=== PATIENT | female | born 1995 | race Caucasian/White ===

== ENCOUNTER 2023-07-26 23:41 | Emergency (ER) | payer OTHER ==
--- NOTE | 2023-07-26 23:44 | EDPHYS ---
Physician Documentation [facility] Name: Margaux Clifford Age: 27 yrs Sex: Female : 1995 Arrival Date: 07/26/2023 Time: 23:41 Bed Waiting Private MD: ED Physician Refugio Wang HPI: 07/26 23:45 This 27 yrs old Female presents to ER via Unassigned with complaints of Exposure. kb 23:45 Patient is a 27-year-old female who presents for bacterial meningitis exposure. Request kb prophylactic antibiotics.. Historical: - Allergies: 23:48 No Known Allergies; cm10 - Home Meds: 23:48 None [Active]; cm10 - PMHx: 23:48 None; cm10 - Immunization history:: Adult Immunizations up to date. - Social history:: Smoking status: Patient denies any tobacco usage or history of. ROS: 23:45 Constitutional: Negative for fever, chills, and weight loss, kb 23:45 All other systems are negative, Exam: 23:45 Constitutional: This is a well developed, well nourished patient who is awake, alert, kb and in no acute distress. Head/Face: Normocephalic, atraumatic. ENT: Moist Mucous membranes Respiratory: Respirations even and unlabored. No increased work of breathing. Talking in full sentences Skin: Warm, dry with normal turgor. Normal color. MS/ Extremity: Pulses equal, no cyanosis. Neurovascular intact. Full, normal range of motion. Neuro: Awake and alert, GCS 15, oriented to person, place, time, and situation. Moves all extremities. Normal gait. Vital Signs: 23:47 BP 133 / 89; Pulse 87; Resp 18; Temp 98.9; Pulse Ox 99% on R/A; cm10 MDM: 23:43 Patient medically screened. kb 23:46 Data reviewed: vital signs, nurses notes. Counseling: I had a detailed discussion with kb the patient and/or guardian regarding the historical points, exam findings, and any diagnostic results supporting the discharge/admit diagnosis, the need for outpatient follow up, a family practitioner, to return to the emergency department if symptoms worsen or persist or if there are any questions or concerns that arise at home. Administered Medications: 23:47 Drug: Ciprofloxacin PO 1 grams PO once Route: PO; cm10 23:50 Follow up: Response: No adverse reaction cm10 Disposition: 07/27 03:14 Co-signature as Attending Physician, Refugio Wang MD I agree with the assessment sp4 and plan of care. I reviewed the patient's care provided by Advanced Practice Provider \T\ agree w/ the diagnosis \T\ care plan. I personally saw the pt \T\ performed a substantive portion of the visit, incldng all aspects of the (History/Exam/Medical Decision Making). Disposition Summary: 07/26/23 23:44 Discharge Ordered Notes: Location: Home kb Condition: Stable kb Diagnosis - Bacterial meningitis exposure kb Followup: kb - With: Emergency Department - When: As needed - Reason: Worsening of condition Followup: kb - With: Private Physician - When: 2 - 3 days - Reason: Recheck today's complaints, Continuance of care, Re-evaluation by your physician Forms: - Medication Reconciliation Form kb - Thank You Letter kb - Antibiotic Education kb - Prescription Opioid Use kb - Patient Portal Instructions kb - Leadership Thank You Letter kb Signatures: Gabbie Joseph, TORCH BRAZER-C TORCH BRAZER-Refugio Benítez MD MD sp4 Laine Fabian RN RN cm10
--- OUTSIDE RECORDS SUMMARY | 2023-07-26 23:45 | XMS REPORT | Continuity of Care Document ---
:1995 Author Organization [facility] t Address [address] [place] [address] Care Team Providers Name Role Phone Ambreen Newton MD Primary Care Physician [phone] Lilo Isabel Attending Clinician Unavailable AMBREEN NEWTON Attending Clinician Unavailable [email or web address] Attending Clinician Unavailable Ambreen Newton MD Attending Clinician [phone] RONALD BRITO Attending Clinician Unavailable Ronald Brito PA-C Attending Clinician Unknown, Attending Attending Clinician Unavailable Doctor Unassigned, [employer] Attending Clinician Unavailable Elsa Disla MD Attending Clinician ELSA DISLA Attending Clinician Unavailable LION RODRIGUEZ Attending Clinician Unavailable MAYA CERDA Attending Clinician Unavailable MAYA CERDA Attending Clinician Unavailable Lab, Ang - Db Attending Clinician Unavailable Mukesh Houser Attending Clinician MUKESH BLACKWOOD Attending Clinician Unavailable ALEX FRENCH Attending Clinician Unavailable TESTING, LJ LAKESHA ABAD Attending Clinician Unavailable [id number] Attending Clinician Unavailable Alex French DO Attending Clinician LAB90 Attending Clinician Unavailable SHARDA ZAMBRANO Attending Clinician Unavailable Lilo Isabel Admitting Clinician Unavailable [email or web address] Admitting Clinician Unavailable Payers Payer Name Policy Type Policy Number Effective Date Expiration Date Jovi hansen BLUE [employer]ENTIALS HMO [id number] 2022 00:00:00 TRS BLUE ESSENTIALS 9 [id number] 2022 CAPITATED PRIMARY 00:00:00 AETNA 2 [id number] 2022 00:00:00 Problems Condition Condition Condition Status Onset Resolution Last Treating Co mments Source Name Details Category Date Date Treatment Clinician Date Abnormal Abnormal Disease Active Unive rs uterine uterine 2-19 ity of bleeding bleeding 00:00: [place] [facility] Pain Pain Disease Active Univers pelvic pelvic 2-19 ity of 00:00: [place] [facility] Presence Presence Disease Active Unive rs of of 2-19 ity of intrauteri intrauteri [place] 00 Medical contracept contracept Br anch anne device anne device BMI BMI Disease Active Univers 25.0-25.9, 25.0-25.9, 2-19 it y of adult adult 00:00: [place] [facility] Encounter Encounter Disease Active Uni vers for for 2-10 ity of contracept contracept [place] anne anne 00 Medical management management Br anch , , unspecifie unspecifie d type d type Hx of iron Hx of iron Disease Active U nivers deficiency deficiency 2-10 it y of anemia anemia 00:00: [place] [facility] Migraine Migraine Disease Active Unive rs with with 2-10 ity of status status 00:00: [place] migrainosu migrainosu 00 Me dical s, not s, not Branch intractabl intractabl e, e, unspecifie unspecifie d migraine d migraine type type Allergies, Adverse Reactions, Alerts Allergy Allergy Status Severity Reaction(s) Onset Inactive Treating Comm ents Source Name Type Date Date Clinician No Known DA Active U 2019-09 [facility] [place] No Known DA Active U 2019-09 [facility]01 [facility] NO KNOWN Drug Active Univers ALLERGIE Class ity of S [facility] Social History Social Habit Start Date Stop Date Quantity Comments Source Gender identity Universit y [facility] Sexual orientation Univer [facility] Alcohol intake 2023-05-04 2023-05-04 Ex-drinker [facility] 00:00:00 00:00:00 (finding) [facility] Exposure to 2022-12-06 2022-12-16 Not sure [facility] SARS-CoV-2 (event) 00:00:00 10:40:00 [facility] Tobacco use and 2022-10-20 2022-10-20 Smokeless tobacco Un iversity of exposure 00:00:00 00:00:00 non-user [facility] Alcohol Comment 2022-10-20 2022-10-20 occasionally Univers ity of 00:00:00 00:00:00 [facility] History of Social 2022-10-14 2022-10-14 Univers ity of function 00:00:00 00:00:00 [facility] Sex [birth year] Universit y of 00:00:00 00:00:00 [facility] Smoking Status Start Date Stop Date Source Tobacco smoking consumption [facility] Never smoked tobacco [facility] Medications Ordered Filled Start Stop Current Ordering Indication Dosage Frequency Signature Comments Components Source Medication Medication Date Date Medication? Clinician (SIG) Name Name amphetamine 2022-09 Yes [id number] 15mg Take 1 Univers -dextroamph 1-01 capsule by it y of etamine 00:00: mouth [place] (ADDERALL 00 every Medical XR) 15 mg morning. Branch 24 hr capsule amphetamine 2022-09 Yes [id number] 15mg Take 1 Univers -dextroamph 0-04 capsule by it y of etamine 00:00: mouth [place] (ADDERALL 00 every Medical XR) 15 mg morning. Branch 24 hr capsule amphetamine 2022-09 Yes [id number] 15mg Take 1 Univers -dextroamph 0-04 capsule by it y of etamine 00:00: mouth [place] (ADDERALL 00 every Medical XR) 15 mg morning. Branch 24 hr capsule amphetamine 2022-09- No [id number] 15mg Take 1 Univers -dextroamph 0-04 11-01 capsule by i ty of etamine 00:00: 00:00 mouth [place] (ADDERALL 00 :00 every Medical XR) 15 mg morning. Branch 24 hr capsule amphetamine 2022-1 Yes [id number] 10mg Take 1 Univers -dextroamph 0-03 capsule by it y of etamine 00:00: mouth [place] (ADDERALL 00 every Medical XR) 10 mg morning. Branch 24 hr capsule amphetamine 2022-1 2023- No [id number] 10mg Take 1 Univers -dextroamph 0-03 10-04 capsule by i ty of etamine 00:00: 00:00 mouth [place] (ADDERALL 00 :00 every Medical XR) 10 mg morning. Branch 24 hr capsule amphetamine 2022-0 Yes [id number] 10mg Take 1 Univers -dextroamph 8-31 capsule by it y of etamine 00:00: mouth [place] (ADDERALL 00 every Medical XR) 10 mg morning. Branch 24 hr capsule amphetamine 2022-0 Yes [id number] 10mg Take 1 Univers -dextroamph 8-31 capsule by it y of etamine 00:00: mouth [place] (ADDERALL 00 every Medical XR) 10 mg morning. Branch 24 hr capsule amphetamine 3-0 Yes [id number] 10mg Take 1 Univers -dextroamph 8-31 capsule by it y of etamine 00:00: mouth [place] (ADDERALL 00 every Medical XR) 10 mg morning. Branch 24 hr capsule amphetamine 2022-0 3- No [id number] 10mg Take 1 Univers -dextroamph 8-31 09-29 capsule by i ty of etamine 00:00: 00:00 mouth [place] (ADDERALL 00 :00 every Medical XR) 10 mg morning. Branch 24 hr capsule nirmatrelvi 3-0 Yes [id number] 3{tbl} Take 3 Univers r-ritonavir 8-24 tablets by it y of (PAXLOVID) 00:00: mouth in [facility] [place] as 300 mg (150 00 the Medical mg x 2)-100 morning Branc h mg tablet and 3 tablets in the evening. cetirizine 3-0 Yes [id number] 10mg Take 1 Univers 10 mg 8-24 tablet by ity of tablet 00:00: mouth in [place] 00 the Medical morning. Branch bromphenira 2023-0 Yes [id number] 5mL Take 5 mL Univers mine-pseudo 8-24 by mouth 3 it y of ephedrine-D 00:00: (three) [place] M (BROMFED 00 times Medical DM) 2-30-10 daily as Bran ch mg/5 mL needed for syrup Cold symptoms. nirmatrelvi 2022-0 Yes [id number] 3{tbl} Take 3 Univers r-ritonavir 8-24 tablets by it y of (PAXLOVID) 00:00: mouth in [place] 300 mg (150 00 the Medical mg x 2)-100 morning Branc h mg tablet and 3 tablets in the evening. cetirizine 2022-0 Yes [id number] 10mg Take 1 Univers 10 mg 8-24 tablet by ity of tablet 00:00: mouth in [place] 00 the Medical morning. Branch bromphenira 2022-0 Yes [id number] 5mL Take 5 mL Univers mine-pseudo 8-24 by mouth 3 it y of ephedrine-D 00:00: (three) [place] (BROMFED 00 times Medical DM) 2-30-10 daily as Bran ch mg/5 mL needed for syrup Cold symptoms. nirmatrelvi 2022-0 Yes [id number] 3{tbl} Take 3 Univers r-ritonavir 8-24 tablets by it y of (PAXLOVID) 00:00: mouth in [place] 300 mg (150 00 the Medical mg x 2)-100 morning Branc h mg tablet and 3 tablets in the evening. cetirizine 2022-0 Yes [id number] 10mg Take 1 Univers 10 mg 8-24 tablet by ity of tablet 00:00: mouth in [place] 00 the Medical morning. Branch bromphenira 2022-0 Yes [id number] 5mL Take 5 mL Univers mine-pseudo 8-24 by mouth 3 it y of ephedrine-D 00:00: (three) [place] (BROMFED 00 times Medical DM) 2-30-10 daily as Bran ch mg/5 mL needed for syrup Cold symptoms. nirmatrelvi 2022-0 2023- No [id number] 3{tbl} Take 3 Univers r-ritonavir 8-24 08-31 tablets by i ty of (PAXLOVID) 00:00: 00:00 mouth in [place] 300 mg (150 00 :00 the Medical mg x 2)-100 morning Branc h mg tablet and 3 tablets in the evening. cetirizine 3-0 2022- No [id number] 10mg Take 1 Univers 10 mg 8-27 04-31 tablet by ity of tablet 00:00: 00:00 mouth in [place] 00 :00 the Medical morning. Branch bromphenira 2022-0 2022- No [id number] 5mL Take 5 mL Univers mine-pseudo 04-27 by mouth 3 i ty of ephedrine-D 00:00: 00:00 (three) [place] M (BROMFED 00 :00 times Medical DM) 2-30-10 daily as Bran ch mg/5 mL needed for syrup Cold symptoms. nirmatrelvi 0 2022- No [id number] 3{tbl} Take 3 Univers r-ritonavir 04-27 tablets by i ty of (PAXLOVID) 00:00: 00:00 mouth in [place] 300 mg (150 00 :00 the Medical mg x 2)-100 morning Branc h mg tablet and 3 tablets in the evening. cetirizine 2022-0 2022- No [id number] 10mg Take 1 Univers 10 mg 04-27- tablet by ity of tablet 00:00: 00:00 mouth in [place] 00 :00 the Medical morning. Branch bromphenira 2022-0 2022- No [id number] 5mL Take 5 mL Univers mine-pseudo 04-27 by mouth 3 i ty of ephedrine-D 00:00: 00:00 (three) [place] M (BROMFED 00 :00 times Medical DM) 2-30-10 daily as Bran ch mg/5 mL needed for syrup Cold symptoms. dextroamphe 2023-0 Yes [id number] 10mg Take 1 Univers tamine-amph 7-19 tablet by ity of etamine 00:00: mouth [place] (ADDERALL) 00 every Medical 10 mg morning. Branch tablet dextroamphe 2023-0 Yes [id number] 10mg Take 1 Univers tamine-amph 7-19 tablet by ity of etamine 00:00: mouth [place] (ADDERALL) 00 every Medical 10 mg morning. Branch tablet dextroamphe 2023-0 Yes [id number] 10mg Take 1 Univers tamine-amph 7-19 tablet by ity of etamine 00:00: mouth [place] (ADDERALL) 00 every Medical 10 mg morning. Branch tablet dextroamphe 2023-0 Yes [id number] 10mg Take 1 Univers tamine-amph 7-19 tablet by ity of etamine 00:00: mouth [place] (ADDERALL) 00 every Medical 10 mg morning. Branch tablet dextroamphe 2023-0 2023- No [id number] 10mg Take 1 Univers tamine-amph 7-19 08-31 tablet by it y of etamine 00:00: 00:00 mouth [place] (ADDERALL) 00 :00 every Medical 10 mg morning. Branch tablet dextroamphe 2023-0 2023- No [id number] 10mg Take 1 Univers tamine-amph 7-19 08-31 tablet by it y of etamine 00:00: 00:00 mouth [place] (ADDERALL) 00 :00 every Medical 10 mg morning. Branch tablet dextroamphe 2023-0 Yes [id number] 10mg Take 1 Univers tamine-amph 6-16 tablet by ity of etamine 00:00: mouth [place] (ADDERALL) 00 every Medical 10 mg morning. Branch tablet dextroamphe 2023-0 2023- No [id number] 10mg Take 1 Univers tamine-amph 6-16 07-19 tablet by it y of etamine 00:00: 00:00 mouth [place] (ADDERALL) 00 :00 every Medical 10 mg morning. Branch tablet dextroamphe 2023-0 Yes [id number] 10mg Take 1 Univers tamine-amph 5-10 tablet by ity of etamine 00:00: mouth [place] (ADDERALL) 00 every Medical 10 mg morning. Branch tablet dextroamphe 2023-0 2023- No [id number] 10mg Take 1 Univers tamine-amph 5-10 06-16 tablet by it y of etamine 00:00: 00:00 mouth [place] (ADDERALL) 00 :00 every Medical 10 mg morning. Branch tablet levonorgest 3-0 Yes by Univer s rel (MIRENA 4-14 Intrauteri it y of INTRAUTERIN 10:56: ne route. [place] E) 36 Medical Branch levonorgest 2023-0 Yes by [facility] s rel (MIRENA 4-14 Intrauteri it y of INTRAUTERIN 10:56: ne route. [place] E) 36 Medical Branch levonorgest Yes by Univ s rel (MIRENA 4-14 Intrauteri it y of INTRAUTERIN 10:56: ne route. [place] E) 36 Medical Branch levonorgest Yes by Univ s rel (MIRENA 4-14 Intrauteri it y of INTRAUTERIN 10:56: ne route. [place] E) 36 Medical Branch levonorgest Yes by [facility] s rel (MIRENA 4-14 Intrauteri it y of INTRAUTERIN 10:56: ne route. [place] E) 36 Medical Branch levonorgest Yes by [facility] s rel (MIRENA 4-14 Intrauteri it y of INTRAUTERIN 10:56: ne route. [place] E) 36 Medical Branch levonorgest Yes by [facility] s rel (MIRENA 4-14 Intrauteri it y of INTRAUTERIN 10:56: ne route. [place] E) 36 Medical Branch levonorgest Yes by [facility] s rel (MIRENA 4-14 Intrauteri it y of INTRAUTERIN 10:56: ne route. [place] E) 36 Medical Branch levonorgest Yes by [facility] s rel (MIRENA 4-14 Intrauteri it y of INTRAUTERIN 10:56: ne route. [place] E) 36 Medical Branch levonorgest Yes by [facility] s rel (MIRENA 4-14 Intrauteri it y of INTRAUTERIN 10:56: ne route. [place] E) 36 Medical Branch levonorgest Yes by Univ s rel (MIRENA 4-14 Intrauteri it y of INTRAUTERIN 10:56: ne route. [place] E) 36 Medical Branch levonorgest Yes by Univ s rel (MIRENA 4-14 Intrauteri it y of INTRAUTERIN 10:56: ne route. [place] E) 36 Medical Branch levonorgest Yes by Univ s rel (MIRENA 4-14 Intrauteri it y of INTRAUTERIN 10:56: ne route. [place] E) 36 Medical Branch levonorgest 2022-0 Yes by Univer s rel (MIRENA 4-14 Intrauteri it y of INTRAUTERIN 10:56: ne route. [place] E) 36 Medical Branch levonorgest 2022-0 Yes by Univer s rel (MIRENA 4-14 Intrauteri it y of INTRAUTERIN 10:56: ne route. [place] E) 36 Medical Branch levonorgest 2022-0 Yes by Univer s rel (MIRENA 4-14 Intrauteri it y of INTRAUTERIN 10:56: ne route. [place] E) 36 Medical Branch levonorgest 2022-0 Yes by Univer s rel (MIRENA 4-14 Intrauteri it y of INTRAUTERIN 10:56: ne route. [place] E) 36 Medical Branch cetirizine 2022-0 Yes Take by Univ ers HCl (ZYRTEC 4-14 mouth once it y of ORAL) 10:56: daily as [place] 07 needed for Medical Other Branch (allergies ). cetirizine 2022-0 Yes Take by Univ ers HCl (ZYRTEC 4-14 mouth once it y of ORAL) 10:56: daily as [place] 07 needed for Medical Other Branch (allergies ). cetirizine 2022-0 Yes Take by Univ ers HCl (ZYRTEC 4-14 mouth once it y of ORAL) 10:56: daily as [place] 07 needed for Medical Other Branch (allergies ). cetirizine 2022-0 Yes Take by Univ ers HCl (ZYRTEC 4-14 mouth once it y of ORAL) 10:56: daily as [place] 07 needed for Medical Other Branch (allergies ). cetirizine 2022-0 Yes Take by Univ ers HCl (ZYRTEC 4-14 mouth once it y of ORAL) 10:56: daily as [place] 07 needed for Medical Other Branch (allergies ). cetirizine 2022-0 Yes Take by Univ ers HCl (ZYRTEC 4-14 mouth once it y of ORAL) 10:56: daily as [place] 07 needed for Medical Other Branch (allergies ). cetirizine 2022-0 Yes Take by Univ ers HCl (ZYRTEC 4-14 mouth once it y of ORAL) 10:56: daily as [place] 07 needed for Medical Other Branch (allergies ). cetirizine 2023-0 Yes Take by Univ ers HCl (ZYRTEC 4-14 mouth once it y of ORAL) 10:56: daily as [place] 07 needed for Medical Other Branch (allergies ). cetirizine 2023-0 Yes Take by Univ ers HCl (ZYRTEC 4-14 mouth once it y of ORAL) 10:56: daily as [place] 07 needed for Medical Other Branch (allergies ). cetirizine 2023-0 Yes Take by Univ ers HCl (ZYRTEC 4-14 mouth once it y of ORAL) 10:56: daily as [place] 07 needed for Medical Other Branch (allergies ). cetirizine 2023-0 Yes Take by Univ ers HCl (ZYRTEC 4-14 mouth once it y of ORAL) 10:56: daily as [place] 07 needed for Medical Other Branch (allergies ). cetirizine 2023-0 Yes Take by Univ ers HCl (ZYRTEC 4-14 mouth once it y of ORAL) 10:56: daily as [place] 07 needed for Medical Other Branch (allergies ). cetirizine 2023-0 Yes Take by Univ ers HCl (ZYRTEC 4-14 mouth once it y of ORAL) 10:56: daily as [place] 07 needed for Medical Other Branch (allergies ). cetirizine 2023-0 Yes Take by Univ ers HCl (ZYRTEC 4-14 mouth once it y of ORAL) 10:56: daily as [place] 07 needed for Medical Other Branch (allergies ). cetirizine 2023-0 Yes Take by Univ ers HCl (ZYRTEC 4-14 mouth once it y of ORAL) 10:56: daily as [place] 07 needed for Medical Other Branch (allergies ). cetirizine 2023-0 Yes Take by Univ ers HCl (ZYRTEC 4-14 mouth once it y of ORAL) 10:56: daily as [place] 07 needed for Medical Other Branch (allergies ). cetirizine 2023-0 Yes Take by Univ ers HCl (ZYRTEC 4-14 mouth once it y of ORAL) 10:56: daily as [place] 07 needed for Medical Other Branch (allergies ). cetirizine 2023-0 Yes Take by Univ ers HCl (ZYRTEC 4-14 mouth once it y of ORAL) 10:56: daily as [place] 07 needed for Medical Other Branch (allergies ). cetirizine 2022-0 Yes Take by Univ ers HCl (ZYRTEC 4-14 mouth once it y of ORAL) 10:56: daily as [place] 07 needed for Medical Other Branch (allergies ). dextroamphe 2022-0 Yes [id number] 10mg Take 1 Univers tamine-amph 4-14 tablet by ity of etamine 00:00: mouth [place] (ADDERALL) 00 every Medical 10 mg morning. Branch tablet dextroamphe 2022-0 Yes [id number] 10mg Take 1 Univers tamine-amph 4-14 tablet by ity of etamine 00:00: mouth [place] (ADDERALL) 00 every Medical 10 mg morning. Branch tablet dextroamphe 2022-0 Yes [id number] 10mg Take 1 Univers tamine-amph 4-14 tablet by ity of etamine 00:00: mouth [place] (ADDERALL) 00 every Medical 10 mg morning. Branch tablet dextroamphe 2022-0 3- No [id number] 10mg Take 1 Univers tamine-amph 4-14 05-10 tablet by it y of etamine 00:00: 00:00 mouth [place] (ADDERALL) 00 :00 every Medical 10 mg morning. Branch tablet amphetamine 2022-0 Yes [id number] TAKE ONE Univers -dextroamph 3-17 (1) ity of etamine 10 00:00: CAPSULE(S) [place] mg 24 hr 00 BY MOUTH Medical capsule EVERY Branch MORNING. amphetamine 2022-0 Yes [id number] TAKE ONE Univers -dextroamph 3-17 (1) ity of etamine 10 00:00: CAPSULE(S) [place] mg 24 hr 00 BY MOUTH Medical capsule EVERY Branch MORNING. amphetamine 2022-0 2023- No [id number] TAKE ONE Univers -dextroamph 3-17 04-14 (1) ity of etamine 10 00:00: 00:00 CAPSULE(S) [place] mg 24 hr 00 :00 BY MOUTH Medical capsule EVERY Branch MORNING. amphetamine 2022-0 2023- No [id number] TAKE ONE Univers -dextroamph 3-17 04-14 (1) ity of etamine 10 00:00: 00:00 CAPSULE(S) [place] mg 24 hr 00 :00 BY MOUTH Medical capsule EVERY Branch MORNING. dextroamphe 2023-0 Yes [id number] 10mg Take 1 Univers tamine-amph 3-16 tablet by ity of etamine 00:00: mouth [place] (ADDERALL) 00 every Medical 10 mg morning. Branch tablet dextroamphe 2023-0 Yes [id number] 10mg Take 1 Univers tamine-amph 3-16 tablet by ity of etamine 00:00: mouth [place] (ADDERALL) 00 every Medical 10 mg morning. Branch tablet dextroamphe 2023-0 2023- No [id number] 10mg Take 1 Univers tamine-amph 3-16 04-14 tablet by it y of etamine 00:00: 00:00 mouth [place] (ADDERALL) 00 :00 every Medical 10 mg morning. Branch tablet dextroamphe 2023-0 2023- No [id number] 10mg Take 1 Univers tamine-amph 3-16 04-14 tablet by it y of etamine 00:00: 00:00 mouth [place] (ADDERALL) 00 :00 every Medical 10 mg morning. Branch tablet ZOLMitripta 2023-0 Yes 5mg Take 1 Univ ers n 5 mg 3-14 tablet by ity of tablet 15:59: mouth as [place] 07 needed for Medical Migraine. Branch cetirizine 3-0 Yes Take by Univ ers HCl (ZYRTEC 3-14 mouth. ity of ORAL) 15:59: [place] 07 Medical Branch ZOLMitripta 2023-0 Yes 5mg Take 1 Univ ers n 5 mg 3-14 tablet by ity of tablet 15:59: mouth as [place] 07 needed for Medical Migraine. Branch cetirizine 3-0 Yes Take by Univ ers HCl (ZYRTEC 3-14 mouth. ity of ORAL) 15:59: [place] 07 Medical Branch ZOLMitripta 2023-0 Yes 5mg Take 1 Univ ers n 5 mg 3-14 tablet by ity of tablet 15:59: mouth as [place] 07 needed for Medical Migraine. Branch cetirizine 2023-0 Yes Take by Univ ers HCl (ZYRTEC 3-14 mouth. ity of ORAL) 15:59: [place] 07 Medical Branch ZOLMitripta 2023-0 Yes 5mg Take 1 Univ ers n 5 mg 3-14 tablet by ity of tablet 15:59: mouth as [place] 07 needed for Medical Migraine. Branch cetirizine 2023-0 Yes Take by Univ ers HCl (ZYRTEC 3-14 mouth. ity of ORAL) 15:59: [place] 07 Medical Branch ZOLMitripta 2023-0 Yes 5mg Take 1 Univ ers n 5 mg 3-14 tablet by ity of tablet 15:59: mouth as [place] 07 needed for Medical Migraine. Branch ZOLMitripta 2023-0 Yes 5mg Take 1 Univ ers n 5 mg 3-14 tablet by ity of tablet 15:59: mouth as [place] 07 needed for Medical Migraine. Branch ZOLMitripta 2023-0 Yes 5mg Take 1 Univ ers n 5 mg 3-14 tablet by ity of tablet 15:59: mouth as [place] 07 needed for Medical Migraine. Branch ZOLMitripta 2023-0 Yes 5mg Take 1 Univ ers n 5 mg 3-14 tablet by ity of tablet 15:59: mouth as [place] 07 needed for Medical Migraine. Branch ZOLMitripta 2023-0 Yes 5mg Take 1 Univ ers n 5 mg 3-14 tablet by ity of tablet 15:59: mouth as [place] 07 needed for Medical Migraine. Branch ZOLMitripta 2023-0 Yes 5mg Take 1 Univ ers n 5 mg 3-14 tablet by ity of tablet 15:59: mouth as [place] 07 needed for Medical Migraine. Branch ZOLMitripta 2023-0 Yes 5mg Take 1 Univ ers n 5 mg 3-14 tablet by ity of tablet 15:59: mouth as [place] 07 needed for Medical Migraine. Branch ZOLMitripta 2023-0 Yes 5mg Take 1 Univ ers n 5 mg 3-14 tablet by ity of tablet 15:59: mouth as [place] 07 needed for Medical Migraine. Branch ZOLMitripta 2023-0 Yes 5mg Take 1 Univ ers n 5 mg 3-14 tablet by ity of tablet 15:59: mouth as [place] 07 needed for Medical Migraine. Branch ZOLMitripta 2023-0 Yes 5mg Take 1 Univ ers n 5 mg 3-14 tablet by ity of tablet 15:59: mouth as [place] 07 needed for Medical Migraine. Branch ZOLMitripta 2023-0 Yes 5mg Take 1 Univ ers n 5 mg 3-14 tablet by ity of tablet 15:59: mouth as [place] 07 needed for Medical Migraine. Branch ZOLMitripta 2023-0 Yes 5mg Take 1 Univ ers n 5 mg 3-14 tablet by ity of tablet 15:59: mouth as [place] 07 needed for Medical Migraine. Branch ZOLMitripta 2023-0 Yes 5mg Take 1 Univ ers n 5 mg 3-14 tablet by ity of tablet 15:59: mouth as [place] 07 needed for Medical Migraine. Branch ZOLMitripta 2023-0 Yes 5mg Take 1 Univ ers n 5 mg 3-14 tablet by ity of tablet 15:59: mouth as [place] 07 needed for Medical Migraine. Branch ZOLMitripta 2023-0 Yes 5mg Take 1 Univ ers n 5 mg 3-14 tablet by ity of tablet 15:59: mouth as [place] 07 needed for Medical Migraine. Branch ZOLMitripta 2023-0 Yes 5mg Take 1 Univ ers n 5 mg 3-14 tablet by ity of tablet 15:59: mouth as [place] 07 needed for Medical Migraine. Branch ZOLMitripta 2023-0 Yes 5mg Take 1 Univ ers n 5 mg 3-14 tablet by ity of tablet 15:59: mouth as [place] 07 needed for Medical Migraine. Branch ZOLMitripta 2023-0 Yes 5mg Take 1 Univ ers n 5 mg 3-14 tablet by ity of tablet 15:59: mouth as [place] 07 needed for Medical Migraine. Branch ZOLMitripta 2023-0 Yes 5mg Take 1 Univ ers n 5 mg 3-14 tablet by ity of tablet 15:59: mouth as [place] 07 needed for Medical Migraine. Branch amphetamine 3-0 Yes [id number] TAKE ONE Univers -dextroamph 3-14 (1) ity of etamine 10 00:00: CAPSULE(S) [place] mg 24 hr 00 BY MOUTH Medical capsule EVERY Branch MORNING. amphetamine 2023-0 Yes [id number] TAKE ONE Univers -dextroamph 3-14 (1) ity of etamine 10 00:00: CAPSULE(S) [place] mg 24 hr 00 BY MOUTH Medical capsule EVERY Branch MORNING. amphetamine 2023-0 2023- No [id number] TAKE ONE Univers -dextroamph 3-14 03-16 (1) ity of etamine 10 00:00: 00:00 CAPSULE(S) [place] mg 24 hr 00 :00 BY MOUTH Medical capsule EVERY Branch MORNING. ZOLMitripta 2023-0 Yes 5mg Take 5 mg U nivers n 5 mg 2-10 by mouth ity of tablet 15:09: as needed [place] [address] for Medical Migraine. Branch cetirizine 2022-0 Yes Take by Univ ers HCl (ZYRTEC 2-10 mouth. ity of ORAL) 15:09: [place] [address] Medical Branch ZOLMitripta 3-0 Yes 5mg Take 5 mg U nivers n 5 mg 2-10 by mouth ity of tablet 15:09: as needed [place] [address] for Medical Migraine. Branch cetirizine 2022-0 Yes Take by Univ ers HCl (ZYRTEC 2-10 mouth. ity of ORAL) 15:09: [place] [address] Medical Branch ZOLMitripta 2022-0 Yes 5mg Take 5 mg U nivers n 5 mg 2-10 by mouth ity of tablet 15:09: as needed [place] [address] for Medical Migraine. Branch cetirizine 2022-0 Yes Take by Univ ers HCl (ZYRTEC 2-10 mouth. ity of ORAL) 15:09: [place] [address] Medical Branch ZOLMitripta 3-0 Yes 5mg Take 5 mg U nivers n 5 mg 2-10 by mouth ity of tablet 15:09: as needed [place] [address] for Medical Migraine. Branch cetirizine 2022-0 Yes Take by Univ ers HCl (ZYRTEC 2-10 mouth. ity of ORAL) 15:09: [place] [address] Medical Branch ZOLMitripta 3-0 Yes 5mg Take 5 mg U nivers n 5 mg 2-10 by mouth ity of tablet 15:09: as needed [place] [address] for Medical Migraine. Branch cetirizine 2022-0 Yes Take by Univ ers HCl (ZYRTEC 2-10 mouth. ity of ORAL) 15:09: [place] [address] Medical Branch amphetamine 3-0 Yes TAKE ONE Un harika -dextroamph 1-30 (1) ity of etamine 10 00:00: CAPSULE(S) [place] mg 24 hr 00 BY MOUTH Medical capsule EVERY Branch MORNING. amphetamine 3-0 Yes TAKE ONE Un harika -dextroamph 1-30 (1) ity of etamine 10 00:00: CAPSULE(S) [place] mg 24 hr 00 BY MOUTH Medical capsule EVERY Branch MORNING. amphetamine 3-0 Yes TAKE ONE Un harika -dextroamph 1-30 (1) ity of etamine 10 00:00: CAPSULE(S) [place] mg 24 hr 00 BY MOUTH Medical capsule EVERY Branch MORNING. amphetamine 0 Yes TAKE ONE Un harika -dextroamph 1-30 (1) ity of etamine 10 00:00: CAPSULE(S) [place] mg 24 hr 00 BY MOUTH Medical capsule EVERY Branch MORNING. amphetamine 0 Yes TAKE ONE Un harika -dextroamph 1-30 (1) ity of etamine 10 00:00: CAPSULE(S) [place] mg 24 hr 00 BY MOUTH Medical capsule EVERY Branch MORNING. amphetamine 2022- No TAKE ONE U nivers -dextroamph 1-30 03-14 (1) ity of etamine 10 00:00: 00:00 CAPSULE(S) [place] mg 24 hr 00 :00 BY MOUTH Medical capsule EVERY Branch MORNING. amphetamine 2022- No TAKE ONE U nivers -dextroamph 1-30 03-14 (1) ity of etamine 10 00:00: 00:00 CAPSULE(S) [place] mg 24 hr 00 :00 BY MOUTH Medical capsule EVERY Branch MORNING. Vital Signs Vital Name Observation Time Observation Value Comments Source Systolic blood 2023-05-04 20:54:00 130 mm[Hg] Univer [facility] Diastolic blood 2023-05-04 20:54:00 80 mm[Hg] [facility] Heart rate 2023-05-04 20:54:00 74 /min [facility] Respiratory rate 2023-05-04 20:54:00 18 /min [facility] Body height 2023-05-04 20:54:[address] [facility] Body weight 2023-05-04 20:54:[address] [facility] BMI 2023-05-04 20:54:00 24.99 kg/m2 [facility] Oxygen saturation in 2023-05-04 20:54:00 100 /min [facility] Arterial blood by [facility] Pulse oximetry [place] Systolic blood 2023-04-27 20:38:00 128 mm[Hg] [facility] Diastolic blood 2023-04-27 20:38:00 85 mm[Hg] Unive rsity of pressure [place] [facility] Heart rate 2023-04-27 20:38:00 106 /min [facility] [place] [facility] Body temperature 2023-04-27 20:38:00 37.33 Kristina [facility] [place] [facility] Respiratory rate 2023-04-27 20:38:00 24 /min [facility] [place] [facility] Body weight 2023-04-27 20:38:00 63.957 kg [facility] [place] [facility] BMI 2023-04-27 20:38:00 24.20 kg/m2 [facility] [place] [facility] Oxygen saturation in 2023-04-27 20:38:00 99 /min University of Arterial blood by [facility] Pulse oximetry Branch Systolic blood 2022-12-16 15:50:00 125 mm[Hg] Univer sity of pressure [place] [facility] Diastolic blood 2022-12-16 15:50:00 81 mm[Hg] Unive rsity of pressure [place] [facility] Heart rate 2022-12-16 15:50:00 65 /min [facility] [place] [facility] Body temperature 2022-12-16 15:50:00 36.61 Kristina [facility] [place] [facility] Respiratory rate 2022-12-16 15:50:00 18 /min [facility] [place] [facility] Body height 2022-12-16 15:50:00 162.6 cm [facility] [place] [facility] Body weight 2022-12-16 15:50:00 66.271 kg [facility] [place] [facility] BMI 2022-12-16 15:50:00 25.08 kg/m2 [facility] [place] [facility] Oxygen saturation in 2022-12-16 15:50:00 100 /min University of Arterial blood by [facility] Pulse oximetry Branch Systolic blood 2022-11-15 20:59:00 132 mm[Hg] Univer sity of pressure [place] [facility] Diastolic blood 2022-11-15 20:59:00 83 mm[Hg] Unive rsity of pressure [place] [facility] Heart rate 2022-11-15 20:59:00 76 /min [facility] [place] [facility] Body temperature 2022-11-15 20:59:00 36.61 Kristina [facility] [place] [facility] Respiratory rate 2022-11-15 20:59:00 16 /min [facility] [place] [facility] Body height 2022-11-15 20:59:00 162.6 cm [facility] [place] [facility] Body weight 2022-11-15 20:59:00 68.947 kg [facility] [place] [facility] BMI 2022-11-15 20:59:00 26.09 kg/m2 Universi ty of [facility] Oxygen saturation in 2022-11-15 20:59:00 100 /min University of Arterial blood by [facility] Pulse oximetry Branch Systolic blood 2022-10-20 20:01:00 133 mm[Hg] Univer sity of pressure [place] [facility] Diastolic blood 2022-10-20 20:01:00 83 mm[Hg] Unive rsity of pressure [facility] Branch Heart rate 2022-10-20 20:01:00 90 /min [facility] [place] [facility] [place] Body temperature 2022-10-20 20:01:00 36.72 Kristina Univ ersity of [facility] Branch Respiratory rate 2022-10-20 20:01:00 16 /min [facility] [place] [facility] Body height 2022-10-20 20:01:00 162.6 cm [facility] [place] [facility] Body weight 2022-10-20 20:01:00 68.357 kg [facility] [place] [facility] BMI 2022-10-20 20:01:00 25.87 kg/m2 [facility] [place] [facility] Systolic blood 2022-10-14 21:09:00 129 mm[Hg] Univer sity of pressure [place] [facility] Diastolic blood 2022-10-14 21:09:00 83 mm[Hg] Unive rsity of pressure [place] [facility] Heart rate 2022-10-14 21:09:00 68 /min [facility] [place] [facility] Body temperature 2022-10-14 21:09:00 36.5 Kristina [facility] [place] [facility] Body height 2022-10-14 21:09:00 162.6 cm [facility] [place] [facility] Body weight 2022-10-14 21:09:00 68.493 kg [facility] [place] [facility] BMI 2022-10-14 21:09:00 25.92 kg/m2 [facility] [place] [facility] Oxygen saturation in 2022-10-14 21:09:00 100 /min University Arterial blood by [facility] Pulse oximetry [place] Procedures Procedure Date / Time Performed Performing Clinician Dionne ray POCT MOLECULAR STREP 2023-04-27 20:33:00 Unknown, Attending [facility] POCT SARS-COV-2 2023-04-27 20:22:00 Daryl [facility] [place] ANTIGEN (BINAX NOW) Medical Bran ch PAIN MANAGEMENT 2022-12-16 05:01:00 Doctor Unassigned, Yecenia [facility] AGREEMENT & INFORMED Name Medical [facility] nc CONSENT POCT TEST 2022-10-20 00:00:00 Maya Cerda [facility] ASSIGNMENT OF BENEFITS 2022-10-14 20:55:34 Doctor Unassigned, Yecenia [facility] [id number] 2020-08-07 00:00:00 [facility] [place] [facility] Encounters Start End Encounter Admission Attending Care Care Encounter Source Date/Time Date/Time Type Type Clinicians Facility Department ID 2020-10-14 Inpatient VENKAT Isabel [facility] LD [id number] [facility] 12:10:00 Lilo [facility] 2020-08-04 Inpatient Chalo [facility] DULCE [id number] [facility] 15:58:00 Lilo [facility] 2023-09-05 2023-09-05 Outpatient R LAMAR [facility] [id number] [facility] 16:00:00 16:00:00 AMBREEN [facility] 2023-07-05 2023-07-05 Outpatient [id number] PRIV PRIV [id number] [facility] 00:00:00 00:00:00 [id number] [id number] Medic al 2023-07-03 2023-07-03 Patient Villard [facility] 1.2.840.114 [id number] [facility] 00:00:00 00:00:00 Secure Ambreen Rivera [facility] 350.1.13.10 ity of [place] 4.2.7.2.686 Luis as AYDIN?BLEA [phone] [place] GOMEZ [address] [place] [address] MEDICAL OFFICE BUILDING 2023-06-09 2023-06-09 [facility] 1.2.840.114 10 [id number] Univers 00:00:00 00:00:00 , Ambreen HEALTH 350.1.13.10 ity of M [place] 4.2.7.2.686 Luis as AYDIN?BLEA [phone] [address] MEDICAL OFFICE BUILDING 2023-06-05 2023-06-05 Patient Villard [facility] 1.2.840.114 10 [id number] Univers 00:00:00 00:00:00 Secure Msg , Ambreen HEALTH 350.1.13.10 ity of M [place] 4.2.7.2.686 Luis as AYDIN?BLEA [phone] [address] MEDICAL OFFICE BUILDING 2023-06-02 2023-06-02 Refill [facility] 1.2.840.114 10 [id number] Univers 00:00:00 00:00:00 , Ambreen HEALTH 350.1.13.10 ity of M [place] 4.2.7.2.686 Luis as AYDIN?BLEA [id number] [address] MEDICAL OFFICE BUILDING 2023-05-24 2023-05-24 Refill [facility] 1.2.840.114 10 [id number] Univers 00:00:00 00:00:00 , Ambreen HEALTH 350.1.13.10 ity of M [place] 4.2.7.2.686 Luis as AYDIN?BLEA [id number] [address] MEDICAL OFFICE BUILDING 2023-05-04 2023-05-04 [facility] 1.2.840.114 10 [id number] Univers 16:00:00 16:20:00 Visit , Ambreen HEALTH 350.1.13.10 ity of M [place] 4.2.7.2.686 Luis as AYDIN?BLEA [id number] [address] MEDICAL OFFICE BUILDING 2023-05-04 2023-05-04 [facility] [id number] Univers 16:00:00 16:00:00 , AMBREEN it y of [facility] 2023-04-27 2023-04-27 Outpatient R DARYL [facility] [id number] Univers 15:20:00 15:47:28 RONALD ity of [facility] 2023-04-27 2023-04-27 Urgent Mary Britocy [facility] 1.2.840.11 [id number] Univers 15:20:00 15:47:28 Care Unknown, [facility] HEALTH 350.1.13.10 ity of [place] 4.2.7.2.686 Luis as AYDIN?BLEA [id number] [address] MEDICAL OFFICE [facility] 2023-04-27 2023-04-27 Letter Daryl [facility] 1.2.330.011 [id number] Univers 00:00:00 00:00:00 (Out) Ronald HEALTH 350.1.13.10 it y of [place] 4.2.7.2.686 Luis as AYDIN?BLEA [phone] [address] OFFICE [facility] 2023-04-27 2023-04-27 Letter Daryl [facility] 1.2.451.065 [id number] Univers 00:00:00 00:00:00 (Out) Ronald HEALTH 350.1.13.10 it y of [place] 4.2.7.2.686 Luis as AYDIN?BLEA [id number] [address] OFFICE [facility] 2023-04-18 2023-04-18 Outpatient R LAMAR [facility] [id number] Univers 16:00:00 16:00:00 , AMBREEN it y of [facility] 2023-03-22 2023-03-22 Refill [facility] 1.2.840.114 [id number] Univers 00:00:00 00:00:00 , Ambreen HEALTH 350.1.13.10 ity of M [place] 4.2.7.2.686 Luis as AYDIN?BLEA [phone] [facility] [address] [place] MEDICAL OFFICE [facility] 2023-02-17 2023-02-17 [facility] 1.2.840.114 10 [id number] Univers 00:00:00 00:00:00 , Ambreen HEALTH 350.1.13.10 ity of M [place] 4.2.7.2.686 Luis as AYDIN?BLEA [id number] [address] MEDICAL OFFICE [facility] 2023-02-11 2023-02-11 Patient [facility] 1.2.840.114 [id number] Univers 00:00:00 00:00:00 Secure Msg , Ambreen HEALTH 350.1.13.10 ity of M [place] 4.2.7.2.686 Luis as AYDIN?BLEA [id number] [address] MEDICAL OFFICE [facility] 2023-01-11 2023-01-11 Refill [facility] 1.2.840.114 10 [id number] Univers 00:00:00 00:00:00 , Ambreen HEALTH 350.1.13.10 ity of M [place] 4.2.7.2.686 Luis as AYDIN?BLEA [id number] [address] OFFICE [facility] 2022-12-16 2022-12-16 Outpatient R [facility] [id number] Univers 16:15:00 16:15:00 , AMBREEN it y of [facility] 2022-12-16 2022-12-16 Office [facility] 1.2.840.114 [id number] [facility] 10:45:00 11:14:00 Visit , Ambreen [facility] 350.1.13.10 ity of [place] 4.2.7.2.686 Luis as AYDIN?BLEA [id number] [address] MEDICAL OFFICE [facility] 2022-12-16 2022-12-16 Outpatient R [facility] [id number] Univers 10:45:00 11:14:00 , AMBREEN it y of [facility] 2022-12-16 2022-12-16 Orders Doctor PENNY 1.2.840.114 [id number] Univers 00:00:00 00:00:00 Only Unassigned, JESSICA 350.1.13.10 ity of [employer] [facility] 4.2.7.2.686 Luis as [id number] [address] 2022-11-222022-11-22 Outpatient R LAMAR [facility] [id number] Univers 11:00:00 11:00:00 , AMBREEN wells [facility] 2022-11-17 2022-11-17 Refill Nighat VILLALOBOS 1.2.840.114 10 [id number] Univers 00:00:00 00:00:00 , Elsa PEDIATRIC 350.1.13.10 [place]2.[place] [id number] [address] 2022-11-16 2022-11-16 Telephone Nighat VILLALOBOS 1.2.840.114 [id number] Univers 00:00:00 00:00:00 , Elsa PEDIATRIC 350.1.13.10 [place]2.[place] [id number] [address] 2022-11-15 2022-11-15 Outpatient R NIGHAT [facility] [id number] Univers 15:45:00 16:24:56 , ELSA campuzano [facility] 2022-11-15 2022-11-15 Office Nighat VILLALOBOS 1.2.840.114 10 [id number] Univers 15:45:00 16:24:56 Visit , Elsa PEDIATRIC 350.1.13.10 [place]2.[place] [id number] [address] 2022-11-11 2022-11-11 Outpatient R LAMAR [facility] [id number] Univers 10:45:00 10:45:00 , AMBREEN wells [facility] 2022-10-27 2022-10-27 Outpatient R MAYA CERDA [facility] B [id number] Univers 00:00:00 00:00:00 MAYA CERDA [facility] 2022-10-25 2022-10-25 Patient ROCÍO Cerda CROSS 1.2.840.114 [id number] Univers 00:00:00 00:00:00 Secure Msg Maya JOSEPH 350.1.13.10 ity of [place].2.[place] [id number] [address] 2022-10-23 2022-10-23 Patient Doctor ZOHAIB 1.2.840.114 [id number] Univers 00:00:00 00:00:00 Secure Msg Unassigned, JESSICA 350.1.13.10 ity of [employer] [facility] 4.2.7.2.686 Luis as [id number] [address] 2022-10-20 2022-10-20 Outpatient R AAMIRNELL MAYA [facility] B [id number] Univers 14:15:00 14:18:47 [facility]22-10-20 2022-10-20 Office [facility] 1.2.840.114 [id number] Univers 14:15:00 14:18:47 Visit Maya JOSEPH 350.1.13.10 it y of [place].2.[place] [id number] [address] 2022-10-14 2022-10-14 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BLEA [phone] [place] ARAGON[address] OFFICE [facility] 2022-10-14 2022-10-14 Orders Doctor ZOHAIB 1.2.840.114 [id number] Univers 00:00:00 00:00:00 Only Unassigned, JESSICA 350.1.13.10 ity [facility] 4.2.7.2.[address] [facility] [place] [place] [phone] [facility] 009 Branch 2022-10-11 2022-10-11 Outpatient ANNA STAFFORD [id number] Anna 00:00:00 00:00:00 Seybol d 2022-10-10 2022-10-10 Outpatient PREZAANNA Vickers [id number] Anna 00:00:00 00:00:00 ALEX Seybol d 2022-10-05 2022-10-05 Outpatient PREZAANNA Vickers [id number] [place] 00:00:00 00:00:00 ALEX Seybol d 2022-10-05 2022-10-05 Outpatient ANNA STAFFORD [id number] [place] 00:00:00 00:00:00 Seybol d 2022-10-02 2022-10-02 Outpatient PREZASANNA [id number] [place] 00:00:00 00:00:00 ALEX Seybol d 2022-09-01 2022-09-01 Outpatient PREZASANNA [id number] Anna 00:00:00 00:00:00 ALEX Seybol d 2022-08-04 2022-08-04 Outpatient PREZASANNA [id number] Anna 00:00:00 00:00:00 ALEX Seybol d 2022-08-04 2022-08-04 Outpatient PREZASANNA [id number] Anna 00:00:00 00:00:00 ALEX Seybol d 2022-08-03 2022-08-03 Outpatient PREZASANNA [id number] Anna 16:15:00 16:15:00 ALEX Seybol d 2022-08-03 2022-08-03 Outpatient TESTING, LJ ANNA STAFFORD [id number] Anna 14:00:00 14:00:00 Seybol d 2022-08-03 2022-08-03 Outpatient BEF81-OPO ANNA STAFFORD [id number] Anna 14:00:00 14:00:00 Seybol d 2022-08-03 2022-08-03 Outpatient PREZAJovi, ANNA STAFFORD [id number] [place] 00:00:00 00:00:00 ALEX Seybol d 2022-08-03 2022-08-03 Outpatient PREZAJovi ANNA STAFFORD [id number] Anna 00:00:00 00:00:00 ALEX Seybol d 2022-08-02 2022-08-02 Outpatient PREZAS, ANNA STAFFORD [id number] Anna 00:00:00 00:00:00 ALEX Seybol d 2022-06-20 2022-06-20 Outpatient PREZAS, ANNA STAFFORD [id number] Anna 00:00:00 00:00:00 ALEX Seybol d 2022-06-13 2022-06-13 Outpatient PREZAS, ANNA STAFFORD [id number] Anna 00:00:00 00:00:00 ALEX Seybol d 2022-05-04 2022-05-04 Office PrecassidyPipo vickers 1.2.840.114 [id number] Anna 16:15:00 16:30:00 Visit Alex Joseph 350.1.13.13 Se ybold 1.2.7.2.686 [id number] 2022-03-29 2022-03-29 Outpatient LAB90 ANNA STAFFORD [id number] Anna 11:50:00 11:50:00 Seybol d 2022-03-25 2022-03-25 Outpatient HUNDL, ANNA STAFFORD [id number] Anna 14:30:00 14:30:00 SHARDA Seybol d 2022-03-25 2022-03-25 Office PrePipo hercules 1.2.840.114 [id number] Anna 11:30:00 11:45:00 Visit Alex Joseph 350.1.13.13 Se ybold 1.2.7.2.686 [id number] 2022-03-25 2022-03-25 Outpatient QUEJovi ANNA STAFFORD [id number] [place] 00:00:00 00:00:00 ALEX Seybol d Results Test Description Test Time Test Comments Results Result Comments Source POCT MOLECULAR STREP 2023-04-27 20:41:42 Test Item Value Reference Range Interpretation Comme nts POCT Molecular Strep (test code = 92747-0) Negative Negative Lab Interpretation (test code = 35129-9) Normal [facility] SARS-COV-2 ANTIGEN (BINAX NOW)2023-04-27 20:37:00 Test Item Value Reference Range Interpretation Comments POCT SARS-COV-2 ANTIGEN (test code = Positive Not Detected A 25385-2) On board controls acceptable with C Yes Line (test code = 3574) Lab Interpretation (test code = Abnormal 80661-4) [facility] [id number] 20:04:00 Test Item Value Reference Range Interpretation Comments POCT PREG (test code = 1605) Negative On board controls acceptable with C Yes Line (test code = 3574) POCT PREG LOT # (test code = 3575) POCT PREG TEST DATE (test code = 3576) [facility] [id number] 20:04:00 Test Item Value Reference Range Interpretation Comments POCT PREG (test code = 1605) Negative On board controls acceptable with C Yes Line (test code = 3574) POCT PREG LOT # (test code = 3575) POCT PREG TEST DATE (test code = 3576) [facility] THIRD [id number] 16:03:00 Test Item Value Reference Range Interpretation Comments PLACENTA THIRD TRIMESTER (test code = PLACIII) RUN DATE: 08/18/20 [facility] PAGE 1 RUN TIME: 1357 Specimen Inquiry RUN USER: INTERFACE PATIENT: MARGAUX FINN LOC: ELENA U #: [id number] AGE/SX: 24/F ROOM: [facility] RE08/04/20REG DR: Lilo Isabel MD : 96 BED: A DIS: 08/10/20 STATUS: DIS IN TLOC: SPEC #: [id number] RECD: 08/08/20 STATUS: CELIA REZonia #: [id number] UTE: 08/06/20- SUBM DR: Lilo Isabel MD ENTERED: 08/08/20 SP TYPE: PLACIII OTHR DR: ORDERED: LEVEL V SURGICA CODES: FY7500 - PLACENTA, NOS PROCEDURES: LEVEL V SURGICA (Incomplete) TISSUES: PLACENTA, NOS - PLACENTA CLINICAL HISTORY 24 year old, IUP @ 30.1 weeks, section, severe preeclampsia (wpd) FINAL DIAGNOSIS Placenta, zamora gestation (30.1 weeks): - accelerated villous maturation - 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 CPT Code: 31835 cds/wpd GROSS DESCRIPTION The specimen was received in a container, labeled with the patient's name, unit number and designated "placenta". The following attributes are observed: Cord insertion: 5 cm from margin Cord length: 15 cm Number of vessels: 3 Cord color: Ivy-white Other cord findings: None surface findings: Blue-lerma, wrinkled, glistening Vasculature: Unremarkable blood vasculature Membranes rupture site: 5 cm to margin Membrane color: Ivy-pink Other membrane findings: Semi-translucent and circummarginate The trimmed placental weight: 245 gm CONTINUED ON NEXT PAGE RUN DATE: 08/18/20 [facility] PAGE 2 RUN TIME: 1357 Specimen Inquiry RUN USER: INTERFACE SPEC #: [id number] PATIENT: MARGAUX FINN #[id number] (Continued) --- GROSS DESCRIPTION (Continued) Disk measurement: 15 x 15 x 3 cm in greatest dimension Accessory lobes: None Maternal surface: Lobulated and focally disrupted, completeness cannot be determined Parenchyma: Red-brown and spongy Parenchyma lesions: Multiple ivy-yellow to red-brown lesions are identified predominantly in the periphery ranging from 1.0 - 1.5 cm and involving less than 5% of the total cut surface Cassettes: A1 through A4 sejal/chuy 08/10/20 Signed Clifton Quinn Guido 08/17/20 1603 END OF REPORT CBC W/AUTO [id number] 13:55:00 Test Item Value Reference Range Interpretation Comments WHITE BLOOD CELL (test code = WBC) 15.7 K/mm3 6.6-12.1 H RED BLOOD CELL (test code = RBC) 2.91 M/mm3 3.45-5.01 L HEMOGLOBIN (test code = HGB) 8.0 g/dL 10.7-13.9 L HEMATOCRIT (test code = HCT) 25.8 % 32.1-42.1 L MEAN CELL VOLUME (test code = MCV) 89 fL 84.1-94.8 N MEAN CELL HGB (test code = MCH) 27.5 pg 27-35 N MEAN CELL HGB CONCETRATION (test 31.0 gm/dL 32.2-34.1 L code = MCHC) RED CELL DISTRIBUTION WIDTH (test 16.7 % 12.4-16.5 H code = RDW) PLATELET COUNT (test code = PLT) 173 K/mm3 133-385 N MEAN PLATELET VOLUME (test code = 11.1 fl 9.1-12.7 N MPV) NEUTROPHIL % (test code = NT%) 73.4 % 56.5-79.4 N LYMPHOCYTE % (test code = LY%) 18.2 % 14.3-34.3 N MONOCYTE % (test code = MO%) 6.0 % 5.1-10.4 N EOSINOPHIL % (test code = EO%) 0.4 % 0.1-3.0 N BASOPHIL % (test code = BA%) 0.1 % 0.1-1.0 N NEUTROPHIL # (test code = NT#) 11.5 K/mm3 LYMPHOCYTE # (test code = LY#) 2.9 K/mm3 MONOCYTE # (test code = MO#) 0.9 K/mm3 EOSINOPHIL # (test code = EO#) 0.07 K/mm3 BASOPHIL # (test code = BA#) 0.0 K/mm3 RBC MORPHOLOGY REQUIRED (test code NORMAL NORMAL = RBCM) PLATELET MORPHOLOGY REQUIRED (test NORMAL NORMAL code = PLTMR) CBC W/AUTO [id number] 09:02:00 Test Item Value Reference Range Interpretation Comments WHITE BLOOD CELL (test code = WBC) 19.9 K/mm3 6.6-12.1 H RED BLOOD CELL (test code = RBC) 2.98 M/mm3 3.45-5.01 L HEMOGLOBIN (test code = HGB) 8.0 g/dL 10.7-13.9 L HEMATOCRIT (test code = HCT) 26.2 % 32.1-42.1 L MEAN CELL VOLUME (test code = MCV) 88 fL 84.1-94.8 N MEAN CELL HGB (test code = MCH) 26.8 pg 27-35 L MEAN CELL HGB CONCETRATION (test 30.5 gm/dL 32.2-34.1 L code = MCHC) RED CELL DISTRIBUTION WIDTH (test 15.6 % 12.4-16.5 N code = RDW) PLATELET COUNT (test code = PLT) 156 K/mm3 133-385 N MEAN PLATELET VOLUME (test code = 12.0 fl 9.1-12.7 N MPV) NEUTROPHIL % (test code = NT%) 83.1 % 56.5-79.4 H LYMPHOCYTE % (test code = LY%) 7.6 % 14.3-34.3 L MONOCYTE % (test code = MO%) 8.3 % 5.1-10.4 N EOSINOPHIL % (test code = EO%) 0.0 % 0.1-3.0 L BASOPHIL % (test code = BA%) 0.1 % 0.1-1.0 N NEUTROPHIL # (test code = NT#) 16.6 K/mm3 LYMPHOCYTE # (test code = LY#) 1.5 K/mm3 MONOCYTE # (test code = MO#) 1.7 K/mm3 EOSINOPHIL # (test code = EO#) 0 K/mm3 BASOPHIL # (test code = BA#) 0.0 K/mm3 RBC MORPHOLOGY REQUIRED (test code NORMAL NORMAL = RBCM) PLATELET MORPHOLOGY REQUIRED (test NORMAL NORMAL code = PLTMR) RESULTS VERIFIED BY REPEAT ANALYSISCAPILLARY BLOOD [id number] 22:10:00 Test Item Value Reference Range Interpretation Comments CAPILLARY BLOOD GAS PH (test code 7.324 7.35-7.45 L = PHC) CAPILLARY BLOOD GAS PCO2 (test 43.0 mmHg code = PCO2C) CAPILLARY BLOOD GAS PO2 (test code 16.3 mmHg = PO2C) CBG HCO3 (test code = HCO3C) 21.9 meq/L CBG BASE EXCESS (test code = BEC) -4.1 CBG O2 SATURATION (test code = 20.2 % SATC) CAPILLARY BLOOD GAS TYPE (test CBLV code = TYPEC) CAPILLARY BLOOD [id number] 22:09:00 Test Item Value Reference Range Interpretation Comments CAPILLARY BLOOD GAS PH (test code 7.260 7.35-7.45 L = PHC) CAPILLARY BLOOD GAS PCO2 (test 51.8 mmHg code = PCO2C) CAPILLARY BLOOD GAS PO2 (test code 13.5 mmHg = PO2C) CBG HCO3 (test code = HCO3C) 22.7 meq/L CBG BASE EXCESS (test code = BEC) -4.9 CAPILLARY BLOOD GAS TYPE (test CBLA code = TYPEC) CBC W/AUTO [id number] 13:09:00 Test Item Value Reference Range Interpretation Comments WHITE BLOOD CELL (test 13.5 K/mm3 6.6-12.1 H code = WBC) RED BLOOD CELL (test 3.02 M/mm3 3.45-5.01 L code = RBC) HEMOGLOBIN (test code = 7.9 g/dL 10.7-13.9 L Resu lts verified by HGB) repeat analysis HEMATOCRIT (test code = 25.9 % 32.1-42.1 L Resu lts verified by HCT) repeat analysis MEAN CELL VOLUME (test 86 fL 84.1-94.8 N code = MCV) MEAN CELL HGB (test code 26.2 pg 27-35 L = MCH) MEAN CELL HGB 30.5 gm/dL 32.2-34.1 L CONCETRATION (test code = MCHC) RED CELL DISTRIBUTION 16.2 % 12.4-16.5 N WIDTH (test code = RDW) PLATELET COUNT (test 162 K/mm3 133-385 N code = PLT) MEAN PLATELET VOLUME 12.5 fl 9.1-12.7 N (test code = MPV) NEUTROPHIL % (test code 86.1 % 56.5-79.4 H = NT%) LYMPHOCYTE % (test code 8.1 % 14.3-34.3 L = LY%) MONOCYTE % (test code = 5.0 % 5.1-10.4 L MO%) EOSINOPHIL % (test code 0.0 % 0.1-3.0 L = EO%) BASOPHIL % (test code = 0.0 % 0.1-1.0 L BA%) NEUTROPHIL # (test code 11.6 K/mm3 = NT#) LYMPHOCYTE # (test code 1.1 K/mm3 = LY#) MONOCYTE # (test code = 0.7 K/mm3 MO#) EOSINOPHIL # (test code 0 K/mm3 = EO#) BASOPHIL # (test code = 0.0 K/mm3 BA#) RBC MORPHOLOGY REQUIRED NORMAL NORMAL (test code = RBCM) PLATELET MORPHOLOGY NORMAL NORMAL REQUIRED (test code = PLTMR) : *Specimen Comment: CBC WITH PLATELET COUNTCBC W/AUTO [id number] 13:08:00 Test Item Value Reference Range Interpretation Comments WHITE BLOOD CELL (test 13.5 K/mm3 6.6-12.1 H code = WBC) RED BLOOD CELL (test 3.02 M/mm3 3.45-5.01 L code = RBC) HEMOGLOBIN (test code = 7.9 g/dL 10.7-13.9 L Resu lts verified by HGB) repeat analysis HEMATOCRIT (test code = 25.9 % 32.1-42.1 L Resu lts verified by HCT) repeat analysis MEAN CELL VOLUME (test 86 fL 84.1-94.8 N code = MCV) MEAN CELL HGB (test code 26.2 pg 27-35 L = MCH) MEAN CELL HGB 30.5 gm/dL 32.2-34.1 L CONCETRATION (test code = MCHC) RED CELL DISTRIBUTION 16.2 % 12.4-16.5 N WIDTH (test code = RDW) PLATELET COUNT (test 162 K/mm3 133-385 N code = PLT) MEAN PLATELET VOLUME 12.5 fl 9.1-12.7 N (test code = MPV) NEUTROPHIL % (test code 86.1 % 56.5-79.4 H = NT%) LYMPHOCYTE % (test code 8.1 % 14.3-34.3 L = LY%) MONOCYTE % (test code = 5.0 % 5.1-10.4 L MO%) EOSINOPHIL % (test code 0.0 % 0.1-3.0 L = EO%) BASOPHIL % (test code = 0.0 % 0.1-1.0 L BA%) NEUTROPHIL # (test code 11.6 K/mm3 = NT#) LYMPHOCYTE # (test code 1.1 K/mm3 = LY#) MONOCYTE # (test code = 0.7 K/mm3 MO#) EOSINOPHIL # (test code 0 K/mm3 = EO#) BASOPHIL # (test code = 0.0 K/mm3 BA#) RBC MORPHOLOGY REQUIRED NORMAL (test code = RBCM) PLATELET MORPHOLOGY NORMAL REQUIRED (test code = PLTMR) : *Specimen Comment: CBC WITH PLATELET COUNTURIC [id number] 12:23:00 Test Item Value Reference Range Interpretation Comments URIC ACID (test code = URIC) 9.0 mg/dL 2.6-6.0 H [id number]/[id number] 12:23:00 Test Item Value Reference Range Interpretation Comments SGOT/AST (test code = AST) 16 units/L 15-37 N SGPT/[id number] 12:23:00 Test Item Value Reference Range Interpretation Comments SGPT/ALT (test code = ALT) 17 units/L 12-78 N UR CREATININE CLEARANCE [id number] 23:33:00 Test Item Value Reference Range Interpretation Comments CREATININE CLEARANCE RESULT (test 88 ml/min 70-120 N code = CREATCLR) CREATININE (test code = CREAT) 0.8 mg/dL 0.5-1.0 N UR CREATININE RANDOM (test code = 51.6 mg/dL CREATU) UR VOLUME (test code = VOL) 2000 ML UR PROTEIN [id number] 23:33:00 Test Item Value Reference Range Interpretation Comments UR PROTEIN RANDOM 64.7 mg/dL (test code = PROTU) UR PROTEIN 24HR 1294 mg/24HR 20-150 HH RESULTS CALL ED TO (test code = JUNE Russell BartonREAD B ACK & FBLE40J) CONFIRMED? YES. BY F.LAB.IR1 08/05 2333.Units for 24 HR Urine Protein h ave changed: New Un its = MG/24HR [id number] 03:45:00 Test Item Value Reference Range Interpretation Comments MAGNESIUM (test code = 5.4 mg/dL 1.8-2.4 HH RESUL TS CALLED TO MAG) JUNE BennettREAD BA CK & CONFIRMED? Y.BY F.LAB.LGL0 10/24 9333.RESULTS VE RIFIED BY REPEAT MIGUELITO SIS CHEMISTRY 7 [id number] 23:26:00 Test Item Value Reference Range Interpretation Comments SODIUM (test code = NA) 132 mEq/L 135-145 L POTASSIUM (test code = K) 3.8 mEq/L 3.5-5.0 N CHLORIDE (test code = CL) 101 mEq/L 100-115 N CARBON DIOXIDE (test code = CO2) 23 mEq/L 22-31 N ANION GAP (test code = GAP) 5.50 10-20 L GLUCOSE (test code = GLU) 77 mg/dL 65-110 N BLOOD UREA NITROGEN (test code = 13 mg/dL 7-18 N BUN) GLOMERULAR FILTRATION RATE (test 89 ml/min >60 N code = GFR) CREATININE (test code = CREAT) 0.8 mg/dL 0.5-1.0 N CALCIUM (test code = CA) 8.7 mg/dL 8.4-10.2 N URIC [id number] 20:37:00 Test Item Value Reference Range Interpretation Comments URIC ACID (test code = URIC) 7.6 mg/dL 2.6-6.0 H SAMPLE IS HEMOLYZED. NOTIFIED NURSE MEGANSGOT/[id number] 20:37:00 Test Item Value Reference Range Interpretation Comments SGOT/AST (test code = AST) 30 units/L 15-37 N SAMPLE IS HEMOLYZED. NOTIFIED NURSE MEGANSGPT/[id number] 20:37:00 Test Item Value Reference Range Interpretation Comments SGPT/ALT (test code = ALT) 25 units/L 12-78 N SAMPLE IS HEMOLYZED. NOTIFIED NURSE MEGANCBC W/AUTO [id number] 20:06:00 Test Item Value Reference Range Interpretation Comments WHITE BLOOD CELL (test code = WBC) 12.9 K/mm3 6.6-12.1 H RED BLOOD CELL (test code = RBC) 4.08 M/mm3 3.45-5.01 N HEMOGLOBIN (test code = HGB) 10.6 g/dL 10.7-13.9 L HEMATOCRIT (test code = HCT) 34.4 % 32.1-42.1 N MEAN CELL VOLUME (test code = MCV) 84 fL 84.1-94.8 L MEAN CELL HGB (test code = MCH) 26.0 pg 27-35 L MEAN CELL HGB CONCETRATION (test 30.8 gm/dL 32.2-34.1 L code = MCHC) RED CELL DISTRIBUTION WIDTH (test 15.4 % 12.4-16.5 N code = RDW) PLATELET COUNT (test code = PLT) 204 K/mm3 133-385 N MEAN PLATELET VOLUME (test code = 11.8 fl 9.1-12.7 N MPV) NEUTROPHIL % (test code = NT%) 84.3 % 56.5-79.4 H LYMPHOCYTE % (test code = LY%) 12.1 % 14.3-34.3 L MONOCYTE % (test code = MO%) 2.6 % 5.1-10.4 L EOSINOPHIL % (test code = EO%) 0.6 % 0.1-3.0 N BASOPHIL % (test code = BA%) 0.1 % 0.1-1.0 N NEUTROPHIL # (test code = NT#) 10.9 K/mm3 LYMPHOCYTE # (test code = LY#) 1.6 K/mm3 MONOCYTE # (test code = MO#) 0.3 K/mm3 EOSINOPHIL # (test code = EO#) 0.08 K/mm3 BASOPHIL # (test code = BA#) 0.0 K/mm3 RBC MORPHOLOGY REQUIRED (test code NORMAL NORMAL = RBCM) PLATELET MORPHOLOGY REQUIRED (test NORMAL NORMAL code = PLTMR) AG HEPATITIS B [id number] 18:40:00 Test Item Value Reference Range Interpretation Comments AG HEPATITIS B SURFACE (test code NONREACTIVE NONREACTIVE = HBSAG) IS CONSENT FORM SIGNED FOR HIV TESTING? YAB HEPATITIS C [id number] 18:40:00 Test Item Value Reference Range Interpretation Comments AB HEPATITIS C (test code = NONREACTIVE NONREACTIVE HCVAB) SIGNAL TO CUTOFF (test code = 0.06 <0.80 N CUTOFF) IS CONSENT FORM SIGNED FOR HIV TESTING? YAB [id number] 18:40:00 Test Item Value Reference Range Interpretation Comments AB TREPONEMA (test code = TREPAB) NONREACTIVE NONREACTIVE IS CONSENT FORM SIGNED FOR HIV TESTING? YAB HIV 1 18:40:00 Test Item Value Reference Range Interpretation Comments AB HIV 1 2 (test NONREACTIVE NONREACTIVE [facility] code = [id number]) 4th Gen HIV Ag/Ab Combo Screen IS CONSENT FORM SIGNED FOR HIV TESTING? YAG HEPATITIS B [id number] 18:15:00 Test Item Value Reference Range Interpretation Comments AG HEPATITIS B SURFACE (test code NONREACTIVE NONREACTIVE = HBSAG) IS CONSENT FORM SIGNED FOR HIV TESTING? RENATOB HEPATITIS C [id number] 18:15:00 Test Item Value Reference Range Interpretation Comments AB HEPATITIS C (test code = HCVAB) NONREACTIVE SIGNAL TO CUTOFF (test code = CUTOFF) <0.80 IS CONSENT FORM SIGNED FOR HIV TESTING? YAB [id number] 18:15:00 Test Item Value Reference Range Interpretation Comments AB TREPONEMA (test code = TREPAB) NONREACTIVE NONREACTIVE IS CONSENT FORM SIGNED FOR HIV TESTING? YAB HIV 1 18:15:00 Test Item Value Reference Range Interpretation Comments AB HIV 1 2 (test code = VPK30IA) NONREACTIVE IS CONSENT FORM SIGNED FOR HIV TESTING? YCOVID 19 Asymptomatic IH [id number] 17:36:00 Test Item Value Reference Range Interpretation Comments COVID 19 NEGATIVE NEGATIVE This test has b een Asymptomatic IH AG authorize d only for the (test code = detection ofpro teins from COVNONPUIAG) SARS-CoV-2, not for any other viruses orpathogens. Ne gative results should be treated as presumptive andconfirmed wi th a molecular assay , if necessary for patientmanageme nt. Negative result s do not rule out COVID- 19 andshould not b e used as the sole basis for treatment orpat ient management deci sions, including infec tion controldecision s. Negative result s should be considered i n thecontext of a patient's recent exposure s, history and thepresence of clinical signs and symptoms consis tent withCOVID-19. T his test has not been FD A cleared or approved; th e test hasbeen authori roosevelt by FDA under an Emerge ncy Use Authorization(E UA) for use by marychuyato cristina certified under the CLIA thatmeet the re quirements to perform mode rate, high or waivedcomple xity tests. This iman t is authorized for use at thePoint of Car e (POC), i.e., in patien t care settingsoperati ng under a CLIA Certificat e of Waiver, Certifi je ofCompliance, o r Certificate of Accreditation. This test is only authori zed for the duration of thedeclaration that circumstances e xist justifying theauthorizatio n of emergency use o f in vitro diagnostic test sfor detection and/o r diagnosis of CO VID-19 under Xxofret00 4(b)(1) of the Act, 21 U.S .C. 360bbb-3(b)(1), unless theauthorizatio n is terminated or r evoked sooner. URINALYSIS [id number] 17:21:00 Test Item Value Reference Range Interpretation Comments UA COLOR (test code = COLU) COLE YELLOW A UA APPEARANCE (test code = CLOUDY CLEAR A APPU) UA GLUCOSE DIPSTICK (test code NEGATIVE NEG = DGLUU) UA BILIRUBIN DIPSTICK (test NEGATIVE NEG code = BILU) UA KETONE DIPSTICK (test code NEGATIVE NEG = KETU) UA SPECIFIC GRAVITY (test code 1.033 1.001-1.035 N = SGU) UA BLOOD DIPSTICK (test code = NEG NEG RICO) UA PH DIPSTICK (test code = 5.0 5-9 JERRELL) UA PROTEIN DIPSTICK (test code 3+ NEG A = PROU) UA UROBILINIOGEN DIPSTICK NEGATIVE mg/dL NEG (test code = URO) UA NITRITE DIPSTICK (test code NEG NEG = ABRAN) UA LEUKOCYTE ESTERASE DIPSTICK TRACE NEG A (test code = LEUU) UA WBC (test code = WBCU) 5-10 #/hpf NONE SEEN A UA RBC (test code = RBCU) 2-5 #/hpf NONE SEEN A UA EPITHELIAL CELLS (test code MODERATE #/HPF RARE-FEW A = EPIU) UA BACTERIA (test code = BACU) MODERATE /HPF RARE-FEW UA MUCUS (test code = MUCU) 2+ NONE SEEN A URINE SAMPLE: CLEAN CATCHComment MACCBC W/AUTO [id number] 17:10:00 Test Item Value Reference Range Interpretation Comments WHITE BLOOD CELL (test code = WBC) 10.9 K/mm3 6.6-12.1 N RED BLOOD CELL (test code = RBC) 3.85 M/mm3 3.45-5.01 N HEMOGLOBIN (test code = HGB) 10.2 g/dL 10.7-13.9 L HEMATOCRIT (test code = HCT) 32.4 % 32.1-42.1 N MEAN CELL VOLUME (test code = MCV) 84 fL 84.1-94.8 L MEAN CELL HGB (test code = MCH) 26.5 pg 27-35 L MEAN CELL HGB CONCETRATION (test 31.5 gm/dL 32.2-34.1 L code = MCHC) RED CELL DISTRIBUTION WIDTH (test 15.7 % 12.4-16.5 N code = RDW) PLATELET COUNT (test code = PLT) 180 K/mm3 133-385 N MEAN PLATELET VOLUME (test code = 12.3 fl 9.1-12.7 N MPV) NEUTROPHIL % (test code = NT%) 76.6 % 56.5-79.4 N LYMPHOCYTE % (test code = LY%) 16.0 % 14.3-34.3 N MONOCYTE % (test code = MO%) 5.8 % 5.1-10.4 N EOSINOPHIL % (test code = EO%) 1.1 % 0.1-3.0 N BASOPHIL % (test code = BA%) 0.1 % 0.1-1.0 N NEUTROPHIL # (test code = NT#) 8.4 K/mm3 LYMPHOCYTE # (test code = LY#) 1.7 K/mm3 MONOCYTE # (test code = MO#) 0.6 K/mm3 EOSINOPHIL # (test code = EO#) 0.12 K/mm3 BASOPHIL # (test code = BA#) 0.0 K/mm3 RBC MORPHOLOGY REQUIRED (test code NORMAL NORMAL = RBCM) PLATELET MORPHOLOGY REQUIRED (test NORMAL NORMAL code = PLTMR) Notes Date/Time Note Provider Source 2023-03-22 [id number]:01:14Formatting of this note is larry Seals [place] - 15:01:14 from the original.Images from the original note were not [facility] included.Requested Renewals dextroamphetamine-am phetamine AUTOMOTIVE CUSTOMER EXPERIENCE ADVISOR (ADDERALL) 10 mg tablet Sig: Take 1 tablet by mo ut every morning. Disp: 30 tablet Refills: 0 Start: 2022 Earliest Fill Date: 03/22/2023 Class: eRX For: At tention deficit hyperactivity disorder (ADHD), unspecifi ed ADHD type Last ordered: 1 month ago (02/17/2023) by Avis Newton MD Provider Review Required Failed 03/22/2023 02:59 PM Protocol Details This refill cannot be delegated Valid encounter within last 12 months To be fill ed at: [facility] [address] AT [facility] Recent VisitsD ate Type Provider Dept 12/16/22 Office Visit Ambreen Newton MD [facility] 11/15/22 Office Visit Elsa Ortiz MD [facility] 6 10/14/22 Office Visit Mukesh Blackwood FNP [facility] Showing rec ent visits within past 540 days with a meds authorizing pro vider and meeting all other requirementsFuture Appointment sDate Type Provider Dept 04/18/23 Appointment Ambreen Newton MD [facility] Showing future appointm ents within next 150 days with a meds authorizing provider a nd meeting all other requirements [id number] elephone encounter LumxOG2125-03-17M24:01:24Telephone cecilia ountnell [id number] [id number] ilable for patient [id number] M Fisher [address] Va[id number] [facility] [id number]:01:[id number]|1.2.8 40.008480.1 .[id number] 2020-08-11 [id number]:37:[id number] [facility] 11:37:00 [facility] [address], [place] [address] PATIENT NAME: MARGAUX FINN ADMIT DATE: 08/04/20ACCOUN T NO: [id number] ROOM NO: [facility] AGE: 24 SEX: F ADMITTING PHYSICIAN: Lilo Isabel MD ATTENDING PHYSICIAN: Lilo Isabel MD [facility]The [facility] NOTE Name: Junaid Finn Date: 04/2020 Date/Time: 08/11/2020 11:37:00 extubated succesf ully to CPAP 08/10 DOL: 5 Pos-Mens Age: 30wk 6d Ges t: 30wk 1d : 08/06/2019Birth Weight: 1345 (gms) DAILY PH YSICAL EXAM Todays Weight: 1245 (gms) Chg 24 hrs: -10 Chg 7 days: -- Temperature Heart Rate Resp Rate O2 Sats36.4 160 70 100 Intensive cardiac and respiratory monitoring, co ntinuous and/or frequent vital sign monitoring. General: not toxic, no acutely ill apperaingHead/Neck: Anterior font anelle is soft and flat. No oral lesions. Palate intact. R ed reflex deferred.Chest: Clear, equal breath sounds. Righ t side chest tube in plcaeHeart: Regular rate and rhyth m, without murmur. Pulses are equal and palpable in the upp er and lower extremeties.Abdomen: Soft and flat. No hepatosplenomegaly. Bowel sounds present. Genita jose: Normal external male genitalia are present. Anus patent.Extremities: No deformities noted. Normal range of motion for all extremities. Spine intact to base.Neurologic: Normal tone and activity for gestation.Skin: The skin is pink and well perfus ed. No rashes, vesicles, or other lesions are noted. MEDICATIONSActive Start Date Start Time Stop Da te Dur(d) CommentCaffeine 08/06/2020 6 CitrateAmpicillin 1 10/10/2019 3Gentamicin 08/09/2020 3 PATIENT NAME: MARGAUX FINN RESPIRATORY SUPPORTRespi ratory Support Start Date Stop Date Dur(d) CommentNasal CPAP 08/06/2020 08/09/2020 4Ventilator 08/09/202003/2020 2Nasal CPAP 08/10/2020 2 SETTINGS FOR NASAL CPAP FiO2 CPAP0.21 6 PROCEDURESProcedures Start Date Stop Date Dur(d) Clinician CommentProcedures Chest Tube 0 3 Jonahmark Begum MDProcedures Intubation 08/09/2020 3 XXX XXX, RT Procedures CVL-Perc 08/09/2020 3 XXX XXX, LA BSChem1 Time Na K Cl CO2 BUN Cr Glu 08/10/20 05:00 140 5 .5 110 20 23 0.4 67BS Glu Ca 9.0 Blood Gas Time pH pCO2 pO 2 HCO3 BE Type Jaeegdjj92/07/20 05:00 7.333 36.80 30.00 19 .1 -6.0 CBG CULTURESACTIVEType Date Results Organism Commen t:Blood 08/09/2020 No Growth x 48 hours INTAKE/OUTPUTFlu id Type Delores/oz Dex % Prot g/kg Prot g/100mL Amt CommentSMOFlipidsOther - IV MedsTPN PLANNED INTA KEFLUID TYPE: OTHER - IVCal/oz Dex % Prot g/kg Prot g/10 0mL Amt mL/feed feeds/day mL/hr mL/kg/daFLUID TYPE: SMOFLIPIDSCal/oz Dex % Prot g/kg Prot g/100mL Am t mL/feed feeds/day mL/hr mL/kg/daFLUID TYPE: TPNCal/oz De x % Prot g/kg Prot g/100mL Amt mL/feed feeds/day mL/hr mL /kg/da Total Output: Last Stool: 08/10/2020 GI/NUTRITIO NDiagnosis Start Date End DateNutritional Support 0 PATIENT NAME: MARGAUX FINN Fl uids 08/06/2020Feeding Problem - slow 08/09/2020 feed ing History 30.1 week infant initially NPO with D10W starter TPN fluids initiated at 80mL/kg/day. Initial glucose 60. Fo llow up glucose 111. Made NPO 08/10 due to distanetion an d bilious residual,. TPN 100/ Lipids @ 10Plan EBM/DEBM @ 40 cc/k/d: held on 08/10 will consider re-starting later tod ay TPN @ 100 IL @ 10 PICC line placed 08/09.GESTATIONDiag nosis Start Date End DatePrematurity 2517-6233 gm 08/06/2020 Single Liveborn - C/S 08/06/2020 hospital History 30.1 week infant born to 23 year old . weight 1345. Mat ernal serologies (drawn 08/04): HBsAg negative, HIV ne gative and RPR negative Rubella immune, GBS unknown. COVID negative.Plan Developmentally appropriate NICU care. Humidified incubator for thermoregulatory suppor t, wean per protocol. Car seat challenge, CCHD screen and he aring screen prior to d/c per protocol. Hepatitis B on DOL 30 or 2kg whichever comes first. NBS #1 and #2 per pro tocol OT consult for development ECI at discharge Develo pmental consult at 36 weeks.RESPIRATORYDiagnosis Start D ate End DateRespiratory Distress 08/06/2020 SyndromePneumothorax-onset <= 08/09/2020 28d age History 30.1 week infant, received steroids (1 10/05 08/05) prior to delivery. Initially placed on BCPAP sup port in DR with maximum FiO2 requirements at 30%. Initial C B.30/49/55/24/-2.9. Initial CXR: granular opacit ies bilaterally consistent with RDS. 08/09: right si ded pneumothorax- pig tail placed intubated and surf actant x 1 given. will asses need for second dosePlan patie nt extubated 08/10 to CPAP+ 6. ches tube to water se al 08/11 PATIENT NAME: MARGAUX FINN [id number] CXR shows pig tail in place with a questionable post erior pneumo (not new) continue caffeineINFECTIOUS DISEASEDiagnosis Start Date End DateInfectious S creen <=28D 08/09/2020 08/11/2020 History 30.1 week . R OM at delivery. Delivery for maternal indications. MOB received Ancef prior to delivery. GBS unknown. CBC on adm ission. Erythromycin eye ointment administered following delivery. Initial CBC- WBC 8.1, N31.Plan BC NGTD x 48 hour s. will stop antibioticsHEMATOLOGYDiagnosis Start Date E nd DateAt risk for Anemia of 08/06/2020 PrematurityAt risk for 08/06/2020 Hyperbilirubinemia History MBT O posi tive, BBT O positive, FABIAN neg Initial Hct 55, platelets 192. Vitamin K administered following delivery.Plan Monitor for s/s of anemia/active bleeding. Follow Hct and Plt as cl inically indicated. Bili daily in AM until stable. Photo therapy as indicated.NEUROLOGYDiagnosis Start Date End Date At risk for 08/06/2020 Intraventricular HemorrhageAt risk f or White Matter 08/06/2020 Disease History 30.1 week infa nt born to 23 y/o mother, did receive steroi ds. Magnesium was administered prior to delivery. Tone/activity/reflexes appropriate for gestation al age.Plan HUS schedule 08/10PSYCHOSOCIAL INTERVENTIONDiagn osis Start Date End DateParental Support 08/06/[address] Seals and [place], TELEGRAPHIC INSTRUMENT SUPERVISOR updated parents following stabilization.Plan 08/11: Mom updated at bedsideOPHTHALMOLOGYDiagnosis Start Date End Fabian eAt risk for Retinopathy 08/06/2020 PATIENT NAME: MARGAUX YEUNG of Prematurity History 3 0.1 week at risk of ROP. weight 1345. On BCP AP supportPlan ROP exam per protocolHEALTH MAINTENANCEMATERNAL LABSRPR/Serology: Non-Reacti ve HIV: Negative Rubella: Immune GBS: Unknown HBsAg: Neg ative SCREENINGDate Gakuynt4708/06/2020 Ordered IMMUNIZATIONDate Type Xrumlle7908/06/2020 Ordered Hepatitis B Parental ContactMoriah [phone] Judie olguin MDAuthenticated by Judie Wilkinson MD On 04/2020 12:49:06 PM at 1249 PATIENT NAME: JACKLYN FINN [id number]:37:00F.[id number] able for patient vwxiBVDARCSZDUUWMB2351-34-39I42:49:42 2020-08-10 [id number]:[id number] [facility] 15:22:[address] [address] PATIENT NAME: MARGAUX FINN ADMIT DATE: 08/04/20ACCOUN T NO: [id number] ROOM NO: [facility] AGE: 24 SEX: F ADMITTING PHYSICIAN: Liz Isabel MD ATTENDING PHYSICIAN: Lilo Isabel MD DailyThe [facility] NOTE Name: Junaid Finn Date: 03/2020 Date/Time: 08/10/2020 15:22:00 vent weanning ove rnight. has second dose of surfactant DOL: 4 Pos-Mens Age: 3 0wk 5d Gest: 30wk 1d : 08/06/2019Birth Weight: 1345 (gms) DAILY PHYSICAL EXAM Todays Weight: 1255 (gms) Ch g 24 hrs: -- Chg 7 days: -- Temperature Heart Rate Resp Ra te BP - Sys BP - Wilson BP - Mean O2 Sats98.0 166 54 69 35 45 90 Intensive cardiac and respiratory monitoring, co ntinuous and/or frequent vital sign monitoring. Bed Type: IncubatorHead/Neck: Anterior fontanelle is soft and flat. No oral lesions. Palate intact. Red reflex defer red.Chest: Clear, equal breath sounds. Right side chest tub e in plcaeHeart: Regular rate and rhythm, without mur mur. Pulses are equal and palpable in the upper and lower extremeties.Abdomen: Soft and flat. No hepatospl enomegaly. Bowel sounds present. Genitalia: Normal external male genitalia are present. Anus patent.Extremities: No deformities noted. Normal range of motion for al l extremities. Spine intact to base.Neurologic: No rmal tone and activity for gestation.Skin: The skin is pin k and well perfused. No rashes, vesicles, or other lesions are noted. MEDICATIONSActive Start Date Start Time Stop Fabian e Dur(d) CommentCaffeine 08/06/2020 5 CitrateAmpicillin 08/09/2020 2Gentamicin 08/09/2020 2 PATIENT NAME: MARGAUX FINN RESPIRATORY SUPPORTRespi ratory Support Start Date Stop Date Dur(d) CommentNasal CPAP 08/06/2020 08/09/2020 4Ventilator 08/09/202003/2020 2Nasal CPAP 08/10/2020 1 SETTINGS FOR NASAL CPAP FiO2 CPAP0.4 6 PROCEDURESProcedures Start Date Stop D ate Dur(d) Clinician CommentProcedures Chest Tube 0 2 Jonah Ahsherrie, MDProcedures Intubation 08/09/2020 2 JOSEY DOWLING MD RT Procedures CVL-Perc 08/09/2020 2 XXHarjit DOWLING MD [place] BSChem1 Time Na K Cl CO2 BUN Cr Glu 08/10/20 05:00 140 5 .5 110 20 23 0.4 67BS Glu Ca 9.0 Blood Gas Time pH pCO2 pO 2 HCO3 BE Type Iwryubnx99/07/20 05:00 7.333 36.80 30.00 19 .1 -6.0 CBG CULTURESACTIVEType Date Results Organism Comment :Blood 08/09/2020 No Growth x 24 hrs INTAKE/OUTPUTFluid Type Delores/oz Dex % Prot g/kg Prot g/100mL Amt CommentS MOFlipids 7.2Other - IV 14.26MedsTPN 127.2 Urine Amount: 137 mL 4.5 mL/kg/hr Calculation: 24 hrs Total Output: 137 m L 4.5 mL/kg/hr 109.2 mL/kg/day Calculation: 24 hrsStoo ls: 1 Last Stool: 08/10/2020 GI/NUTRITIONDiagnosis Start Da te End DateNutritional Support 08/06/2020Fluids 2019Feeding Problem - slow 08/09/2020 feeding PATIENT NAME: MARGAUX FINN History 30.1 week initially NPO with D10W starter TPN fluid s initiated at 80mL/kg/day. Initial glucose 60. Follow up gl ucose 111.Assessment Tolearing Feeds. Had PICC linne placed 08/09Plan EBM/DEBM @ 40 cc/k/d PICC line placed 1 10/10. TPN @ 80 [place] @ 10GESTATIONDiagnosis Start Date End Date Prematurity 5215-0121 gm 08/06/2020Single Liveborn - C/S 11/2019 hospital History 30.1 week born to 23 yea r old . weight 1345. Maternal serologies (drawn ): HBsAg negative, HIV negative and RPR negative Rubella immune, GBS unknown. COVID negative.Plan Developmentally ap propriate NICU care. Humidified incubator for thermoregula tory support, wean per protocol. Car seat challenge, CCHD screen and hearing screen prior to d/c per protocol. He patitis B on DOL 30 or 2kg whichever comes first. NBS #1 and #2 per protocol OT consult for development ECI at disch arge Developmental consult at 36 weeks.RESPIRATORYDia gnosis Start Date End DateRespiratory Distress 08/06/20 20 SyndromePneumothorax-onset <= 08/09/2020 28d age History 30.1 week , received steroids (10/05) prior to delivery. Initially placed on BCPAP sup port in DR with maximum FiO2 requirements at 30%. Initial C B.30/49/55/24/-2.9. Initial CXR: granular opacit ies bilaterally consistent with RDS. 08/09: right yury ed pneumothorax- pig tail placed intubated and surf actant x 1 given. will asses need for second dosePlan krista ent extubated 08/10 to CPAP+ 6. CXR shows pig tail in place with a questionable posterior pneumo (not new) ford nue caffeineINFECTIOUS DISEASEDiagnosis Start Date E nd DateInfectious Screen <=28D 08/09/2020 PATIENT N ARIAN: MARGAUX FINN History 30.1 week . ROM at delivery. Delivery for maternal i ndications. MOB received Ancef prior to delivery. GBS unknow n. CBC on admission. Erythromycin eye ointment administere d following delivery. Initial CBC- WBC 8.1, N31.Assessment due to pneumothorax, sepsis evaluation done and Amp and Gent started. 08/09Plan BC NGTD. continue ABX until n eg x 48 hoursHEMATOLOGYDiagnosis Start Date End DateAt r isk for Anemia of 08/06/2020 PrematurityAt risk for 11/2019 Hyperbilirubinemia History MBT O positive, BBT O positive, FABIAN neg Initial Hct 55, platelets 192. Vitamin K administered following delivery.Plan Monitor for s/s of anemia/active bleeding. Follow Hct and Plt as cl inically indicated. Bili daily in AM until stable. Photo therapy as indicated.NEUROLOGYDiagnosis Start Date End Date At risk for 08/06/2020 Intraventricular HemorrhageAt risk f or White Matter 08/06/2020 Disease History 30.1 week infa nt born to 23 y/o mother, did receive stero ids. Magnesium was administered prior to delivery. Tone/activity/reflexes appropriate for gestation al age.Plan HUS schedule 08/10PSYCHOSOCIAL INTERVENTIONDiagn osis Start Date End DateParental Support 08/06/[address] Seals and Charlotte, TELEGRAPHIC INSTRUMENT SUPERVISOR updated parents following stabilization.Plan 08/10: Mom updated at bedside regarding Plan of care. all her questions answered to the best of my ability.OPHTHALMOLOGYDiagnosis Start Date End Da teAt risk for Retinopathy 08/06/2020 of Prematurity Histo ry 30.1 week infant at risk of ROP. weight 1345. O n BCPAP support PATIENT NAME: MARGAUX FINN Plan ROP exam per protocolHEALTH MAINTENANCEMATERNAL LABSRPR/Serology: Non-Reacti ve HIV: Negative Rubella: Immune GBS: Unknown HBsAg: Neg ative SCREENINGDate Zroksth3908/06/2020 Ordered IMMUNIZATIONDate Type Jsebpha1308/06/2020 Ordered Hepatitis B Parental ContactMoritodd [phone] Judie ldrriaga, MDAuthenticated by Judie Wilkinson MD On 03/2020 04:14:29 PM at 1614 PATIENT NAME: JACKLYN FINN [id number]:22:00F.[id number] able for patient lceoZIGUXIDKRBUNLY5388-53-64M04:15:08 2020-08-10 [id number]:24:00 [facility]:24:00 [facility])OB Disch PostpartumREPORT#:[id number] REPORT STATUS: SignedDATE:08/10/20 TIME: 1124 PATIENT: MARGAUX FINN UNIT #: [id number]#: [id number] [address] [birth year] AGE: 24 SEX: F A TTEND: Lilo Isabel MDADM AUTHOR: Sandra Mcneil MD * ALL edits or amendments must be made on the electronic/computer document * Subjective SubjectiveAdmission EGA: Weeks: 30 Days: 1EGA at delivery (wks/days): 30 W 1DStatus/day: post operative (4 )Patient reports: Patient reports: Yes: normal lochia, pa in management effective, tolerating po well, voidin g well. No: complaints. Objective GeneralVS:Vital Signs: Fabian e Time Temp Pulse Resp B/P B/P Pulse O2 O2 Flow FiO2 Mean Ox Delivery Rate 08/10 0900 16 130/80 08/10 0755 98.5 84 19 142/89 98 08/10 0420 98.6 83 18 119/76 08/09 2345 98.1 81 18 153/92 08/09 2010 98.6 75 18 142/81 08/09 1700 98.8 76 18 143/91 08/09 1218 98.5 75 18 151/96 Vital Signs Date Te mp Pulse Resp B/P B/P Mean Pulse Ox FiO2 08/09-08/10 98.1 -98.8 75-84 16-19 119-153/76-96 98 Last Documented: Result D ate Time B/P 130/80 08/10 0900 Resp 16 08/10 09 Pulse Ox 98 08/10 755 Temp 98.5 08/10 755 Pulse 84 08/10 755 B /P Mean 104.0 08/07 1500 PATIENT WEIGHT: Weight (lb): 14 8Weight (oz): Weight (kg): 67.132 Physical ExamBreasts: Feeding: pumping breastsCardiac: normal rhythm, no clinic ally sig murmur, no gallops, no rubsLungs: clear to auscu ltation, no rales, no rhonchiNeuro: Exam: reflexes equal jamarcus at, 2+/4+ no clonusAbdomen: post gravid, soft, no abnormal tenderness, no guarding, no rebound tenderness, normoactive bowel soundsIncision site: dressing clean dry, d ry, no drainage, no inflammationFundus: firm, non-tende rLochia: normalLower extremities: Edema: trace Calf tende rness: negative ResultsFindings/Data:Laboratory Tests 1 10/09 1029 Hematology WBC (6.6 - 12.1 K/mm3) 15.7 H RBC (3. 45 - 5.01 M/mm3) 2.91 L Hgb (10.7 - 13.9 g/dL) 8.0 L Hct ( 32.1 - 42.1 %) 25.8 L MCV (84.1 - 94.8 fL) 89 MCH (27 - 35 p g) 27.5 MCHC (32.2 - 34.1 gm/dL) 31.0 L RDW (12.4 - 16.5 %) 16.7 H Plt Count (133 - 385 K/mm3) 173 MPV (9.1 - 12.7 fl) 11.1 Neut % (Auto) (56.5 - 79.4 %) 73.4 Lymph % (Auto ) (14.3 - 34.3 %) 18.2 Love % (Auto) (5.1 - 10.4 %) 6.0 Eo s % (Auto) (0.1 - 3.0 %) 0.4 Baso % (Auto) (0.1 - 1.0 %) 0. 1 Neut # (Auto) (K/mm3) 11.5 Lymph # (Auto) (K/mm3) 2.9 Love # (Auto) (K/mm3) 0.9 Eos # (Auto) (K/mm3) 0.07 Bas o # (Auto) (K/mm3) 0.0 Discharge Summary GeneralDate of adm ission:Date of admission: 08/04/20 Admission diagnosis: anem ia, pre-eclampsiaHospital course: primary a dmit, epidural anesthesia, blood transfusion,30 week p reterm delivery baby in nicu, IV iron infusionProcedure s: epidural anesthesia, primary CS delivery, blood transfusi onDischarge condition: stableDischarge to: Home/Self CareDis charge diagnosis: pre-eclampsia, deliveryDischa rge management: less than 30 minsBaby A: statu s: live born Gender: male 1 minute: 8 5 carlos iman: 9Plan: discharge today, POD4 : elevated BPs today, on p rocardia 30 bid + labetelol 100 BID > 600 q 8, additional me ds based on BP . asx for pre-e. s/pmag sulfate. meeting post op milestones. d/c home pod 4 anemia: stable, cont oral iron. s/p transfusion 2u intraop and iv iron postopVag inal packing at delivery: No Discharge InstructionsIn structions: routine instr sheet given, instr and warnings re v'd, specific instr as notedDiet: RegularActivity: As Tolerated, No Driving, No [place] for 6 Wks, No Lifting >10lbs,Nothing in vagina pre f/u, Shower OnlyAdd itional discharge routines: Attending Follow-Up, Add. instructionsWound/dressing care: Keep wound brenda n and dryFollow-up labs,proc, tx:[facility], Additional instructions:follow up in 1 wkContrac eption discussed: abstinence for 4-6 weeks, will discus s at PP visitDischarge meds:Start taking the following n ew medications:IRON AG FUM/VIT C/FA/MV/CA THREONATE (FERREX 28) 151-200-1 TAB 1 TABLET ORAL TWICE DAILY. Qty = 30 No Refills LABETALOL (TRANDATE) 200 MG TAB 600 MILL IGRAM ORAL EVERY 8 HOURS. Qty = 90 No Refills NIFEdipine XL (PROCARDIA XL) 30 MG TAB.SA 30 MILLIGRAM ORAL TWICE DAILY. Qty = 60 No Refills IBUPROFEN (MOTRIN) 600 MG TAB 600 MILLIG YONIS ORAL EVERY 6 HOURS NEEDED. as needed for PAIN SCAL E 1-3 (USE 1ST) Qty = 30 No Refills Prescriptions: e-prescr min Add'l Follow-up AppointmentsAttending Physician: Appt. date: 08/17/20 at 1136 RPT #:[id number] OF REPORT OBObstetric [id number]:24:00F.[id number] lable for patient aoqoDGRFFOMKWDWITR7036-06-09Z08:36:59 2020-08-09 [id number]:05:[id number] [facility] 14:05:00 [place] [address] PATIENT NAME: MARGAUX FINN ADMIT DATE: 08/04/20ACCOUN T NO: [id number] ROOM NO: [facility] AGE: 24 SEX: F ADMITTING PHYSICIAN: Lilo Isabel MD ATTENDING PHYSICIAN: iLlo Isabel MD DailyThe [facility] DAILY NOTE Name: Junaid Finn Date: 02/2020 Date/Time: 08/09/2020 14:05:00 developed R side pneumo- pgtail in place- increased vent suport- started abx DOL: 3 Pos-Mens Age: 30wk 4d Gest: 30wk 1d : 08/06/2019Birth Weight: 1345 (gms) DAILY PHYSICA L EXAM Todays Weight: 1255 (gms) Chg 24 hrs: -15 Chg 7 days: -- Temperature Heart Rate Resp Rate O2 Sats36.8 16 0 60 93 Intensive cardiac and respiratory monitoring, co ntinuous and/or frequent vital sign monitoring. General: stable but acutely ill. moderate resp distressHead/Neck: An terior fontanelle is soft and flat. No oral lesions. Pa late intact. Red reflex deferred.Chest: Clear, equal breath sounds. Right side chest tube in plcaeHeart: Reg ular rate and rhythm, without murmur. Pulses are equal and palpable in the upper and lower extremeties.Abdomen: Soft and flat. No hepatosplenomegaly. Bowel sounds present. Gen angelina: Normal external male genitalia are present. Anus patent.Extremities: No deformities noted. Normal range of motion for all extremities. Spine intact to base.Neurologic: Normal tone and activity for gestation.Skin: The skin is pink and well perfus ed. No rashes, vesicles, or other lesions are noted. MEDICATIONSActive Start Date Start Time Stop Fabian e Dur(d) CommentCaffeine 08/06/2020 4 CitrateAmpicillin 08/09/2020 1Gentamicin 08/09/2020 1 PATIENT NAME: MARGAUX FINN RESPIRATORY SUPPORTResp iratory Support Start Date Stop Date Dur(d) CommentNasal CPAP 08/06/2020 08/09/2020 4Ventilator 08/09/2020 1 S ETTINGS FOR VENTILATORType FiO2 Rate PEEPA/C-VG 0.35 40 5 SE TTINGS FOR NASAL CPAPFiO2 CPAP0.[address] art Date Stop Date Dur(d) Clinician CommentProcedures Tho racentesis - need08/09/2020 08/09/2020 1 Pineda Taylor ocedures Chest Tube 08/09/2020 1 Lindsey Taylor es Intubation 08/09/2020 1 XXHarjit DOWLING MD RTProcedures Thoracentesis - need08/09/2020 08/09/2020 1 Carlos Mariee CVL-Perc 08/09/2020 1 JOSEY DOWLING MD CULTURESACTIVEType Date Results Organism Commen t:Blood 08/09/2020 INTAKE/OUTPUTFluid Type Delores/oz Dex % Prot g/kg Prot g/100mL Amt CommentOther - IV MedsTPN PLAN JACKI INTAKEFLUID TYPE: TPNCal/oz Dex % Prot g/kg Prot g/100mL Amt mL/feed feeds/day mL/hr mL/kg/da 103.2 4.3 82FLUID TYPE: BREAST MILK-PREMCal/oz Dex % Prot g/kg Pro t g/100mL Amt mL/feed feeds/day mL/hr mL/kg/da20 7FLUID TY PE: SMOFLIPIDSCal/oz Dex % Prot g/kg Prot g/100mL A mt mL/feed feeds/day mL/hr mL/kg/da 31.2 1.3 24 Total Outpu t: Last Stool: 08/07/2020 GI/NUTRITION PATIENT NAME: MARGAUX FINN Diagnosi s Start Date End DateNutritional Support 08/06/2020Fluid s 08/06/2020Feeding Problem - slow 08/09/2020 feed ing History 30.1 week infant initially NPO with D10W starter TPN fluids initiated at 80mL/kg/day. Initial glucose 60. Fo llow up glucose 111.Plan patient made NPO overnight due to respiratory decompensation. PICC line placed 08/09. TPN @ 100 IL @ 5 Feeds: EBM/DEBM @ 20 cc/k/dGESTATIOND iagnosis Start Date End DatePrematurity 3025-4735 gm 08/06/2020Single Liveborn - C/S 08/06/2020 hospi charles History 30.1 week infant born to 23 year old . Eduardo h weight 1345. Maternal serologies (drawn 08/04): HBsAg n egative, HIV negative and RPR negative Rubella immune, GB S unknown. COVID negative.Plan Developmentally appropriate NICU care. Humidified incubator for thermoregulatory suppor t, wean per protocol. Car seat challenge, CCHD screen and he aring screen prior to d/c per protocol. Hepatitis B on DOL 30 or 2kg whichever comes first. NBS #1 and #2 per pro tocol OT consult for development ECI at discharge Develo pmental consult at 36 weeks.RESPIRATORYDiagnosis Start D ate End DateRespiratory Distress 08/06/2020 SyndromePneumothorax-onset <= 08/09/2020 28d age History 30.1 week infant, received steroids (10/05) prior to delivery. Initially placed on BCPAP sup port in DR with maximum FiO2 requirements at 30%. Initial C B.30/49/55/24/-2.9. Initial CXR: granular opacit ies bilaterally consistent with RDS. 08/09: right si ded pneumothorax- pig tail placed intubated and surf actant x 1 given. will asses need for second dosePlan pneum o: CXR this am stable. will repeat in am RDS: fio2 around 30 % and intubated. will give second dose of surfactant. AC/VG: will wean as tolareted PATIENT NAME: MARGAUX FINN continue caffeineINFECTIOUS DISEASE Diagnosis Start Date End DateInfectious Screen <=28D 08/0608/09/2020Infectious Screen <=28D 08/09/2020 Hist ory 30.1 week infant. ROM at delivery. Delivery for mater nal indications. MOB received Ancef prior to deliver y. GBS unknown. CBC on admission. Erythromycin eye oint ment administered following delivery. Initial CBC- WB C 8.1, N31.Plan due to pneumothorax, sepsis evaluation done and Amp and Gent started. EMATOLOGYDiagnosis St art Date End DateAt risk for Anemia of 08/06/2020 Prematu rityAt risk for 08/06/2020 Hyperbilirubinemia History MBT O positive, BBT O positive, FABIAN neg Initial Hct 55, platelet s 192. Vitamin K administered following delivery.Plan M onitor for s/s of anemia/active bleeding. Follow Hct and Pl t as clinically indicated. Bili daily in AM until sta ble. Phototherapy as indicated. NEUROLOGYDiagnosis St art Date End DateAt risk for 08/06/2020 Intraventricular HemorrhageAt risk for White Matter 08/06/2020 Di sease History 30.1 week infant born to 23 y/o mot her, did receive steroids. Magnesium was admini stered prior to delivery. Tone/activity/reflexes approp riate for gestational age.Plan HUS schedule 08/10PSYCHOSOC IAL INTERVENTIONDiagnosis Start Date End DateParenta l Support 08/06/[address] Seals and Charlotte, TELEGRAPHIC INSTRUMENT SUPERVISOR up dated parents following stabilization.Plan Mom updated at bedside regarding Plan of care. all her questions answer ed to th ebest of my ability.OPHTHALMOLOGYDiagnosis Start Date End DateAt risk for Retinopathy 08/06/2020 of Emelia turity PATIENT NAME: MARGAUX FINN [id number] History 30.1 week infant at risk of ROP. w eight 1345. On BCPAP supportPlan ROP exam per protocolHEALTH MAINTENANCEMATERNAL LABSRPR/Serology: Non-Reacti ve HIV: Negative Rubella: Immune GBS: Unknown HBsAg: Neg ative SCREENINGDate Puvxtaz0108/06/2020 Ordered IMMUNIZATIONDate Type Odrukxt3308/06/2020 Ordered Hepatitis B Parental ContactMargaux [phone] Judie olguin MDAuthenticated by Judie Wilkinson MD On 02/2020 02:54:13 PM at 0439 PATIENT NAME: JAKCLYN FINN Xerf0267-69-72X90:05:00F.[id number] able for patient ndgoYWYXHAUVWKNFFV1463-88-12S24:40:03 2020-08-09 [id number]:20:00 [facility] 09:20:00 [place] [facility]OB Postpart Progr NoteREPORT#:[id number] REPORT STATUS: SignedDATE:08/09/20 TIME: 919 PATIENT: MARGAUX FINN UNIT #: [id number]#: [id number] [address] [birth year] AGE: 24 SEX: F A TTEND: Lilo Isabel MDADM AUTHOR: Radha Douglass MD * ALL edits or amendments must be made on the electronic/computer document * Subjective SubjectiveAdmission EGA: Weeks: 30 Days: 1EGA at delivery (wks/days): 30 W 1DStatus/Day: POD3 POST 1LTCS F OR SEVERE PRE E REMOTE FROM DELIVERYPatient reports: Patie nt reports: Yes no complaints, Yes normal lochia, Yes pain m anagement effective, Yes tolerating po well, Yes voiding w ell, No excessive bleeding, No abdominal pain, No headac he, No blurred visionComments:no CP SOB Objective Nursi ng Documentation ReviewNursing Data:The data set be tween the solid lines has been imported from nursing docum entation. Any exceptions have been noted below under Provi sofia comments. Feeding preferenc e: Provider comments on impor justin nursing data: [] GeneralVS:Vital Signs Date Time Temp Pulse Resp B/P B/P Pulse O2 O2 Flow FiO2 Mean Ox Delivery Rate 12/0 6 0836 98.5 85 18 150/98 08/09 0400 98.7 77 18 138/80 98 0000 98.8 79 18 151/91 08/08 1950 98.9 78 18 144/84 1 10/09 1700 98.8 67 18 153/98 08/08 1250 98.8 82 18 153/91 08/08 0827 98.8 72 18 148/92 99 08/08 0411 98.2 76 18 141/8 8 08/08 0011 98.9 91 18 144/87 08/07 2003 99.0 70 18 138 /95 100 08/07 1900 62 137/82 98 08/07 1800 58 19 142/90 98 08/07 1700 60 19 143/95 98 08/07 1600 98.2 67 19 142/8 7 100 08/07 1500 104.0 08/07 1500 64 18 132/86 100 08/07 140 0 57 16 133/75 97 08/07 1300 88.0 08/07 1300 54 17 124/ 64 97 08/07 1200 98.0 08/07 1200 98.1 62 19 133/75 98 Physi delores ExamCardiac: normal sinus rhythmLungs: clear to auscultationAbdomen: soft, no abnormal tendernes sIncision site: well approximated edges, dry, no drainageF undus: firm, below the umbilicus, non-tenderLower extre mities: Edema: 1+ pitting ResultFindings/Data:Laboratory Tests 08/06 08/06 08/06 08/07 08/07 1125 2206 2207 06 00 0812 Blood Gas Capillary pH (7.35 - 7.45) 7.260 7.324 Capillary pCO2 (mmHg) 51.8 43.0 Capillary pO2 (mmHg) 13.5 16.3 Capillary HCO3 (meq/L) 22.7 21.9 Capillary Base Excess -4.9 -4.1 Capillary O2 Sat Calc (%) 20.2 Patient On O xygen CBLA CBLV Chemistry Uric Acid (2.6 - 6.0 mg/dL) 9.[address] (15 - 37 units/L) 16 ALT (12 - 78 units/L) 17 Hematology WBC (6.6 - 12.1 K/mm3) 13.5 19.9 RBC (3.45 - 5.01 M/mm3) 3. 02 2.98 Hgb (10.7 - 13.9 g/dL) 7.9 Cancelled 8.0 Hct (32 .1 - 42.1 %) 25.9 Cancelled 26.2 MCV (84.1 - 94.8 fL) 86 88 MCH (27 - 35 pg) 26.2 26.8 MCHC (32.2 - 34.1 gm/dL) 30.5 30.5 RDW (12.4 - 16.5 %) 16.2 15.6 Plt Count (133 - 385 K /mm3) 162 156 MPV (9.1 - 12.7 fl) 12.5 12.0 Neut % (Auto) (56.5 - 79.4 %) 86.1 83.1 Lymph % (Auto) (14.3 - 34.3 %) 8.1 7.6 Love % (Auto) (5.1 - 10.4 %) 5.0 8.3 Eos % (Auto ) (0.1 - 3.0 %) 0.0 0.0 Baso % (Auto) (0.1 - 1.0 %) 0.0 0 .1 Neut # (Auto) (K/mm3) 11.6 16.6 Lymph # (Auto) (K/mm3) 1.1 1.5 Love # (Auto) (K/mm3) 0.7 1.7 Eos # (Auto) (K/m m3) 0 0 Baso # (Auto) (K/mm3) 0.0 0.0 08/08 1029 Hemato logy WBC (6.6 - 12.1 K/mm3) 15.7 RBC (3.45 - 5.01 M/mm3) 2.91 Hgb (10.7 - 13.9 g/dL) 8.0 Hct (32.1 - 42.1 %) 25.8 MCV (84.1 - 94.8 fL) 89 MCH (27 - 35 pg) 27.5 MCHC (32.2 - 3 4.1 gm/dL) 31.0 RDW (12.4 - 16.5 %) 16.7 Plt Count (133 - 385 K/mm3) 173 MPV (9.1 - 12.7 fl) 11.1 Neut % (Auto) (56.5 - 79.4 %) 73.4 Lymph % (Auto) (14.3 - 34.3 %) 18.2 Love % (Auto) (5.1 - 10.4 %) 6.0 Eos % (Auto) (0.1 - 3.0 %) 0.4 Bas o % (Auto) (0.1 - 1.0 %) 0.1 Neut # (Auto) (K/mm3) 11.5 Lym ph # (Auto) (K/mm3) 2.9 Love # (Auto) (K/mm3) 0.9 Eos # (Au to) (K/mm3) 0.07 Baso # (Auto) (K/mm3) 0.0 Diagnosis, Assess ment Plan Diagnosis, Assessment PlanAssessment: 24 Y POD3 NOW WITH SEVERE PRE E. DELIVERED FOR CONLEY AND WORSENIN G BPS AFTER BEING IN STERIOD WINDOW. ANEMIC ANTE WITH 7.9 HG B. IV FE INFUSED AND GIVEN 2 U PRBS IN OR. H/H now stable Plan: discharge tomorrow (if BP stable), POD3 : elevat ed BPs today, on bid + labetelol 100 BID > 200 q 6, additional meds based on BP . asx for pre-e. s/p mag sulfate. meeting postop milestones. d/c home pod 4 anemia: stable, cont oral iron. s/p transfusion 2u intra op and iv iron postop at 1132 RPT #:[id number] OF REPORT PRProgress [id number]:20:00F.[id number] lable for patient kaolSKCFEKCNFIKJAR9589-43-02P07:32:28 2020-08-08 [id number]:55:00 [facility] 13:55:00 [place] [facility])OB Postpart Progr NoteREPORT#:[id number] REPORT STATUS: SignedDATE:08/08/20 TIME: 1355 PATIENT: MARGAUX FINN UNIT #: [id number]#: [id number] [address] [birth year] AGE: 24 SEX: F A TTEND: Lilo Isabel MDADM AUTHOR: Nida Irwin MD * ALL edits or amendments must be made on the electronic/computer document * Subjective SubjectiveAdmission EGA: Weeks: 30 Days: 1EGA at delivery (wks/days): 30 W 1DStatus/Day: POD2 POST 1LTCS F OR SEVERE PRE E REMOTE FROM DELIVERYComments:she is doing ok. pain is controlled with current pain meds. no CONLEY, RUQ pa in, vision changes,. denies heavy Vb. baby is doing well in nicu Objective Nursing Documentation ReviewNursing Da ta:The data set between the solid lines has been imported fr om nursing documentation. Any exceptions have been noted be low under Provider comments. Feeding preferenc e: Provider comments on impor justin nursing data: [] GeneralVS:Vital Signs: Date Time Temp Pulse Resp B/P B/P Pulse O2 O2 Flow FiO2 Mean Ox Delivery Rate 5 0827 98.8 72 18 148/92 99 08/08 0411 98.2 76 18 141/88 0011 98.9 91 18 144/87 08/07 2003 99.0 70 18 138/95 1 00 08/07 1900 62 137/82 98 08/07 1800 58 19 142/90 98 1700 60 19 143/95 98 08/07 1600 98.2 67 19 142/87 100 1500 104.0 08/07 1500 64 18 132/86 100 08/07 1400 57 16 133/75 97 PATIENT WEIGHT: Weight (lb): 148Weight (oz): Weight (kg): 67.132 Physical ExamCardiac: normal sinus rhythmLungs: clear to auscultationAbdomen: soft, no abnormal tendernessIncision site: well approxima justin edges, dry, no drainageFundus: firm, below the umbilicu s, non-tenderLower extremities: Edema: 1+ pitting ResultFindings/Data:Laboratory Tests: 08/08 1029 Hematology WBC (6.6 - 12.1 K/mm3) 15.7 H RBC (3.45 - 5.01 M/mm3) 2.91 L Hgb (10.7 - 13.9 g/dL) 8.0 L Hct (32.1 - 42.1 %) 25.8 L MCV (84.1 - 94.8 fL) 89 MCH (27 - 35 pg) 27.5 MC HC (32.2 - 34.1 gm/dL) 31.0 L RDW (12.4 - 16.5 %) 16.[address] Count (133 - 385 K/mm3) 173 MPV (9.1 - 12.7 fl) 11.1 Neut % (Auto) (56.5 - 79.4 %) 73.4 Lymph % (Auto) (14.3 - 34.3 %) 18.2 Love % (Auto) (5.1 - 10.4 %) 6.0 Eos % (Au to) (0.1 - 3.0 %) 0.4 Baso % (Auto) (0.1 - 1.0 %) 0.1 Neut # (Auto) (K/mm3) 11.5 Lymph # (Auto) (K/mm3) 2.9 Love # ( Auto) (K/mm3) 0.9 Eos # (Auto) (K/mm3) 0.07 Baso # (Au to) (K/mm3) 0.0 Diagnosis, Assessment Plan Diagnosis, Assess ment PlanAssessment: 24 Y POD2 NOW WITH SEVERE P RE E. DELIVERED FOR CONLEY AND WORSENING BPS AFTER BEING I N STERIOD WINDOW. ANEMIC ANTE WITH 7.9 HGB. IV FE INFUSED AND GIVEN 2 U PRBS IN OR. H/H PENDINGPlan: POD2: elevated BP s today, start procardia 30 daily. asx for pre-e. s/p mag sulfate. meeting postop milestones. d/c home pod3/4, anem ia: stable, cont oral iron. s/p transfusion 2u intraop and i v iron postopPlan discussed with: patient, nurse Electr onically Signed by Nida Swenson MD on 08/08/20 at 1401 RPT #:[id number] OF REPORT PRProgress [id number]:55:00F.[id number] lable for patient hzuhXXSAZRTPMTRZHE7380-07-40J29:01:56 2020-08-08 [id number]:14:[id number] [facility] 12:14[facility]00 [facility] [address], [place] [address] PATIENT NAME: MARGAUX FINN ADMIT DATE: 08/04/20ACCOUN T NO: [id number] ROOM NO: [facility] AGE: 24 SEX: F ADMITTING PHYSICIAN: Lilo Isabel MD ATTENDING PHYSICIAN: Lilo Isabel MD DailyThe [facility] DA[facility] NOTE Name: Junaid Finn Date: 01/2020 Date/Time: 08/08/2020 12:14:00 stable on CPAP- F io2 around 30% DOL: 2 Pos-Mens Age: 30wk 3d Gest: 30w k 1d : 08/06/2019Birth Weight: 1345 (gms) DAILY PHYSICA L EXAM Todays Weight: 1270 (gms) Chg 24 hrs: -- Chg 7 d ays: -- Intensive cardiac and respiratory monitoring, co ntinuous and/or frequent vital sign monitoring. General: well appearing. no distressHead/Neck: Anterior fontan alexsander is soft and flat. No oral lesions. Palate intact. R ed reflex deferred.Chest: Clear, equal breath sounds. good CPAP roarHeart: Regular rate and rhythm, without murm ur. Pulses are equal and palpable in the upper and lower extremeties.Abdomen: Soft and flat. No hepatospl enomegaly. Bowel sounds present. 3 vessel cord.Genitalia: N ormal external male genitalia are present. Anus patent.Extremities: No deformities noted. Normal range of motion for all extremities. Spine intact to base.Neurologic: Normal tone and activity for gestation.Skin: The skin is pink and well perfus ed. No rashes, vesicles, or other lesions are noted. MEDICATIONSActive Start Date Start Time Stop Fabian e Dur(d) CommentCaffeine 08/06/2020 3 Citrate RESPIRATORY SUPPORTRespiratory Support Start Date Stop Date Dur(d) CommentNasal CPAP 08/06/2020 3 PATIENT NAME: MARGAUX FINN SETTING S FOR NASAL CPAPFiO2 CPAP0.3 6 LABSChem1 Time Na K Cl CO2 BU N Cr Glu 08/07/20 05:43 136 7.2 108 24 23 0.8 122BS Glu C a Liver Function Time T Bili D Bili Blood Type Lynsey T ALT 08/07/20 05:43 4.30 0.2GGT LDH NH3 Lactate Blood Gas Time pH pCO2 pO2 HCO3 BE Type Jhrrstda76/04/20 00:10 7.304 49.3 55.3 23.9 -2.9 CBG INTAKE/OUTPUTFluid Type Delores/o z Dex % Prot g/kg Prot g/100mL Amt CommentOther - IV Med sTPN Route: Gavage/PO PLANNED INTAKEFLUID TYPE: TPNCal/oz De x % Prot g/kg Prot g/100mL Amt mL/feed feeds/day mL/hr mL /kg/da 103.2 4.3 81.26FLUID TYPE: SMOFLIPIDSCal/oz Dex % Prot g/kg Prot g/100mL Amt mL/feed feeds/day mL/hr mL/kg/d a 31.2 1.3 24.57FLUID TYPE: BREAST MILK-PREMCal/oz Dex % Pr ot g/kg Prot g/100mL Amt mL/feed feeds/day mL/hr mL/kg/d a20 7 Total Output: Last Stool: 08/07/2020 GI/NUTRITIO NDiagnosis Start Date End DateNutritional Support 0Fluids 08/06/2020 History 30.1 week infant initially N PO with D10W starter TPN fluids initiated at 80mL/kg/day . Initial glucose 60. Follow up glucose 111.Plan Monitor n utritional status and growth closely. Strict I/O. Daily clark ghts. Trophic feeds started on Dol1 @ 20 cc/k/d EBM/DE BM- increased to 40 cc/k/d on DOL2 TPN 80 ml/kg/d+ lipids Monitor glucoses per hypoglycemia protocol. Foll ow lytes as clinically indicated. Chem 7, ordered in AM 12/0 4.GESTATION PATIENT NAME: MARGAUX FINN [id number] Diagnosis Start Date End DatePrematurity 1250-14 99 gm 08/06/2020Single Liveborn - C/S 08/06/2020 hospi charles History 30.1 week born to 23 year old . weight 1345. Maternal serologies (drawn 08/04): HBsAg n egative, HIV negative and RPR negative Rubella immune, GB S unknown. COVID negative.Plan Developmentally appropriate NICU care. Humidified incubator for thermoregulatory suppor t, wean per protocol. Car seat challenge, CCHD screen and he aring screen prior to d/c per protocol. Hepatitis B on DOL 30 or 2kg whichever comes first. NBS #1 and #2 per pro tocol OT consult for development ECI at discharge Develop mental consult at 36 weeks.RESPIRATORYDiagnosis Start D ate End DateRespiratory Distress 08/06/2020 Syndrome His tory 30.1 week infant, received steroids (08/04 08/05) prior to delivery. Initially placed on BCPAP sup port in DR with maximum FiO2 requirements at 30%. Initial C B.30/49/55/24/-2.9. Initial CXR: granular opacit ies bilaterally consistent with RDS.Plan Continue BC PAP 6+ support. Assess need for surfactant. Load with c affeine and begin daily maintenance dose. Monitor FiO2 requi rements and WOB closely. Obtain CBG/CXR on admission. Monit or CBG/CXR as clinically indicated.INFECTIOUS DISEASEDiagno sis Start Date End DateInfectious Screen <=28D 08/06/2020 History 30.1 week infant. ROM at delivery. Delivery for maternal indications. MOB received Ancef prior to deliver y. GBS unknown. CBC on admission. Erythromycin eye oint ment administered following delivery. Initial CBC- WB C 8.1, N31.Plan Monitor for s/s of infection. Consider blood culture and antibiotics if indicated.HEMATOLOGYD iagnosis Start Date End DateAt risk for Anemia of 020 PrematurityAt risk for 08/06/2020 Hyperbilirubin emia History PATIENT NAME: MARGAUX FINN MBT O positive, BBT O positive, FABIAN neg Initial Hct 55, platelets 192. Vitamin K adminis tered following delivery.Plan Monitor for s/s of anem ia/active bleeding. Follow Hct and Plt as clinically indic ated. Bili daily in AM until stable. Phototherapy as indicated.NEUROLOGYDiagnosis Start Date End Date At risk for 08/06/2020 Intraventricular HemorrhageAt risk fo r White Matter 08/06/2020 Disease History 30.1 week infa nt born to 23 y/o mother, did receive steroi ds. Magnesium was administered prior to delivery. Tone/activity/reflexes appropriate for gestation al age.Plan HUS on DOL 7, or sooner if clinically indicated.PSYCHOSOCIAL INTERVENTIONDiagnosis Sta rt Date End DateParental Support 08/06/[address] Seals and TWIN Porter updated parents following stabiliza tion. Plan mom updated 08/07 and consented for DEBMOPHTHALMOLOGYDiagnosis Start Date End DateAt risk for Retinopathy 08/06/2020 of Prematurity History 3 0.1 week infant at risk of ROP. weight 1345. On BCP AP supportPlan ROP exam per protocolHEALTH MAINTENANCEMATERNAL LABSRPR/Serology: Non-Reacti ve HIV: Negative Rubella: Immune GBS: Unknown HBsAg: Neg ative SCREENINGDate Wusbrei3108/06/2020 Ordered IMMUNIZATIONDate Type Nddjsdg7208/06/2020 Ordered Hepatitis B Parental ContactMoriah [phone] PATIENT NAME : MARGAUX FINN Judie olguin MDAuthenticated by Judie Wilkinson MD On 01/2020 02:44:07 PM at 1444 PATIENT NAME: JACKLYN FINN H [id number]:14:00F.[id number] able for patient [id number]:45:22 2020-08-07 [id number] [facility] 13:56:00 [facility] [address], [place] [address] PATIENT NAME: MARGAUX FINN ADMIT DATE: 08/04/20ACCOUN T NO: [id number] ROOM NO: [id number] AGE: 24 SEX: F ADMITTING PHYSICIAN: Lilo Isabel MD ATTENDING PHYSICIAN: Lilo Isabel MD DailyThe [facility] NOTE Name: Junaid Finn Date: 12/2019 Date/Time: 08/07/2020 13:56:00 admitted overnigh t- CPAP DOL: 1 Pos-Mens Age: 30wk 2d Gest: 30wk 1d : 08/06/2019Birth Weight: 1345 (gms) DAILY PHYSICA L EXAM Todays Weight: Deferred (gms) Chg 24 hrs: -- Chg 7 days: -- Temperature Heart Rate Resp Rate BP - Sys BP - D ias BP - Mean O2 Sats98.1 140 73 54 37 42 91 Intensive c ardiac and respiratory monitoring, continuous and/or freque nt vital sign monitoring. Bed Type: IncubatorGeneral: wel l appearingHead/Neck: Anterior fontanelle is soft and flat. No oral lesions. Palate intact. Red reflex defer red.Chest: Clear, equal but mildly diminished breath sounds . Mild IC/SC retractions.Heart: Regular rate and rhyth m, without murmur. Pulses are equal and palpable in the upp er and lower extremeties.Abdomen: Soft and flat. No hepatosplenomegaly. Bowel sounds present. 3 vess el cord.Genitalia: Normal external male genitalia a re present. Anus patent.Extremities: No deformities noted. N ormal range of motion for all extremities. Spine intact to base.Neurologic: Normal tone and activity for gestation.Skin: The skin is pink and well perfus ed. No rashes, vesicles, or other lesions are noted. MEDICATIONSActive Start Date Start Time Stop Fabian e Dur(d) CommentCaffeine 08/06/2020 2 Citrate PATIENT NAM E: MARGAUX FINN RESPIRAT ORY SUPPORTRespiratory Support Start Date Stop Date Dur(d) CommentNasal CPAP 08/06/2020 2 SETTINGS FOR NASA L CPAPFiO2 CPAP0.3 6 LABSCBC Time WBC Hgb Hct Plts Segs Ban ds Lymph Love 08/06/20 22:55 8.1 19.2 54.5 192Eos Baso Im m nRBC Retic Chem1 Time Na K Cl CO2 BUN Cr Glu 08/07/20 05:43 136 7.2 108 24 23 0.8 122BS Glu Ca Liver Function Ti me T Bili D Bili Blood Type Lynsey AST ALT 08/07/20 05:43 4. 30 0.2GGT LDH NH3 Lactate Blood Gas Time pH pCO2 pO2 HCO3 BE Type Ofllkvar63/04/20 00:10 7.304 49.3 55.3 23.9 -2.9 CBG INTAKE/OUTPUTFluid Type Delores/oz Dex % Prot g/kg P rot g/100mL Amt CommentOther - IV 2.35 MedsTPN 36 Weight Us ed for calculations: 1345 grams Urine Amount: 40 mL 1.2 mL/kg/hr Calculation: 24 hrs Total Output: 40 mL 1.2 mL/k g/hr 29.7 mL/kg/day Calculation: 24 hrsStools: 1 Last Stoo l: 08/07/2020 GI/NUTRITIONDiagnosis Start Date End DateNutritional Support 08/06/2020Fluids 020 History 30.1 week infant initially NPO with D10W starter TPN fluids initiated at 80mL/kg/day. Initial glucose 60. Fo llow up glucose 111.Plan Monitor nutritional status and growth closely. Strict I/O. Daily weights. Trophic feed s atrted on Dol1 @ 20 cc/k/d EBM/DEBM TPN 100 ml/kg/d+ lipid s Monitor glucoses per hypoglycemia protocol. Follow lyte s as clinically indicated. Chem 7, ordered in AM 12/0 4. PATIENT NAME: MARGAUX FINN GESTATIONDiagnosis Start Date End DatePrematuri ty 5735-8721 gm 08/06/2020Single Liveborn - C/S 11/2019 hospital History 30.1 week infant born to 23 ye ar old . weight 1345. Maternal serologies (dr paz 08/04): HBsAg negative, HIV negative and RPR negative Ru maxwell immune, GBS unknown. COVID negative.Plan Develop mentally appropriate NICU care. Humidified incubator for thermoregulatory support, wean per protocol. Car seat challenge, CCHD screen and hearing screen prior to d/c per protocol. Hepatitis B on DOL 30 or 2kg whichever comes first. NBS #1 and #2 per protocol OT consult fo r development ECI at discharge Developmental cons ult at 36 weeks.RESPIRATORYDiagnosis Start Date End Date R espiratory Distress 08/06/2020 Syndrome History 30.1 week i nfant, received steroids (08/04 08/05) prior to delivery. Initially placed on BCPAP support in D R with maximum FiO2 requirements at 30%. Initial CB.30/49/55/24/-2.9. Initial CXR: granular opacit ies bilaterally consistent with RDS.Plan Continue B CPAP 6+ support. Assess need for surfactant. Load with caffeine and begin daily maintenance dose. Monitor FiO2 r equirements and WOB closely. Obtain CBG/CXR on admission. Mo nitor CBG/CXR as clinically indicated.INFECTIOUS DISEA SEDiagnosis Start Date End DateInfectious Screen <=28D 08/06 History 30.1 week . ROM at delivery. Deliv jitendra for maternal indications. MOB received Ancef prior t o delivery. GBS unknown. CBC on admission. Erythromycin eye ointment administered following delivery. Initial CBC- WB C 8.1, N31.Plan Monitor for s/s of infection. Consider blood culture and antibiotics if indicated.HEMATOLOGYD iagnosis Start Date End DateAt risk for Anemia of 020 PrematurityAt risk for 08/06/2020 Hyperbilirubin emia PATIENT NAME: MARGAUX FINN [id number] History MBT O positive, BBT O positive, FABIAN neg Initial Hct 55, platelets 192. Vitamin K administered follow ing delivery.Plan Monitor for s/s of anemia/active bleeding. Follow Hct and Plt as clinically indicated. Jamarcus i daily in AM until stable. Phototherapy as indicated.NEUROLOGYDiagnosis Start Date End Date At risk for 08/06/2020 Intraventricular HemorrhageAt risk fo r White Matter 08/06/2020 Disease History 30.1 week inf ant born to 23 y/o mother, did receive steroi ds. Magnesium was administered prior to delivery. Tone/activity/reflexes appropriate for gestatio nal age.Plan HUS on DOL 7, or sooner if clinically indicated.PSYCHOSOCIAL INTERVENTIONDiagnosis Sta rt Date End DateParental Support 08/06/[address] Seals and RAQUEL PorterN updated parents following stabiliza tion.Plan mom updated 08/07 and consented for DEBMOPHTHALMOLOGYDiagnosis Start Date End DateAt risk for Retinopathy 08/06/2020 of Prematurity History 30 .1 week infant at risk of ROP. weight 1345. On BCP AP supportPlan ROP exam per protocolHEALTH MAINTENA NCEMATERNAL LABSRPR/Serology: Non-Reactive HIV: Negative Rub akash: Immune GBS: Unknown HBsAg: Negative SCRE ENINGDate Phwjpnn7808/06/2020 Ordered IMMUNIZATIONDate Type Gvpzyby8308/06/2020 Ordered Hepatitis B Parental ContactMori [phone] PATIENT NAME: MARGAUX YEUNG Judie olguin MDAuthenticated by Judie Wilkinson MD On 01/2020 02:44:05 PM at 1444 PATIENT NAME: ERICA FINN [id number]:56:00F.[id number] able for patient rqddNFTMGPTYWTGVBB3413-87-45Q17:45:22 2020-08-07 [id number]:11:[id number] [facility] 07:11:[address] [address] PATIENT NAME: MARGAUX FINN ADMIT DATE: 08/04/20ACCOUN T NO: [id number] ROOM NO: [facility] AGE: 24 SEX: F ADMITTING PHYSICIAN: Lilo Isabel MD ATTENDING PHYSICIAN: Lilo Isabel [facility] Name: Margaux Finn Date: 11/2019 Time: 22:02 Date/Time: 08/07/2020 07:11:43 This 1345 gram Wt 30 week 1 day gestational age lorraine ray was born to a 23 yr. G1 mom . Admit Type: Following Deliv jitendra Referral Physician: Lilo Isabel, OB Mat. Transf er: No [facility] SUMMARYHospital Name Adm Date Adm Time DC Date D [facility]The [facility] 08[facility]06/2020 22:02 MATERN AL HISTORYMoms Age: 23 Race: White Blood Type: O Po s RPR/Serology: Non-Reactive HIV: Negative Rubella : ImmuneGBS: Unknown HBsAg: Negative EDC - OB: Care: Yes Moms MR#: [id number] Moms Fir st Name: Margaux Wesley Last Name: Aakash Complications du ring , Labor or Delivery: Yes Name CommentPr e-eclampsia Maternal Steroids: Yes Most Recent Dose: Date: 10/06/2019 Time: 18:11 Next Recent Dose: Date: 08/04/2020 Ti me: 18:04 Medications During or Labor: Yes Name CommentMagnesium SulfateZofran PATIENT NAME: MARGAUX FINN CefazolinLabetalolNifedipineAmoxicillinCelestone TylenolPren atal vitaminsDiphenhydramine Commentc/ s at 30.1 weeks for severe pre-eclampsia DELIVERYDate of B irth: 08/06/2020 Time of : 22:02 Live Births: Sin gle Order: Single ROM Prior to Delivery: No Fluid at Delivery: Clear Hospital: [facility] as Presentation: Vertex Anesthesia: Epidural Delive ring OB: Lilo Isabel Delivery Type: Section Re ason for Attending: Prematurity 4046-6262 gm Procedures/M edications at Delivery:Warming/Drying, Monitoring VS, Suppl emental O2, Start Date Stop Date Clinician CommentDelayed Co rd Omwnwey21/03/2020 08/06/2020 XXX XXXMD X 60 se c : 1 min: 8 5 min: 9 Physician at Delivery: Thee seth MDOthers at Delivery: MIKEY Haywood and NICU resuscitation team Labor and Delivery Comment:DCC x 60 seconds. Infant vi gorous, good cry. Placed on CPAP +5 via neopuff, increas ed to +6 for poor aeration and retractions, max FiO2 30%. weaned to 25%. No gross anomalies on exam. Admission Comme nt:Admitted to NICU L4 on BCPAP 6, CR monitoring. ADMISSION PHYSICAL EXAMBirth Gestation: 30wk 1d Gender: Male Weight: 1345 (gms) 26-50%tile Temperature Heart Rate Res p Rate BP - Sys BP - Wilson BP - Mean O2 Sats98.3 150 31 53 3 0 36 94 Intensive cardiac and respiratory monitoring, co ntinuous and/or frequent vital sign monitoring. Bed Type: IncubatorGeneral: The is alert and active on exam.Head/Neck: Anterior fontanelle is soft and flat. No oral lesions. Palate intact. Red reflex deferred .Chest: Clear, equal but mildly diminished breath sounds . Mild IC/SC retractions.Heart: Regular rate and rhythm , without murmur. Pulses are equal and PATIENT NAME: MARGAUX CISNEROS palpable in the upper an d lower extremeties.Abdomen: Soft and flat. No hepatospl enomegaly. Bowel sounds present. 3 vessel cord.Genitalia: N ormal external male genitalia are present. Anus patent.Extremities: No deformities noted. Normal range of motion for all extremities. Spine intact to base.Neurologic: Normal tone and activity for gestation.Skin: The skin is pink and well perfus ed. No rashes, vesicles, or other lesions are noted.MEDICATIONSActive Start Date Start Time S top Date Dur(d) CommentVitamin K 08/06/2020 Once 08/06/20 20 1Erythromycin 08/06/2020 Once 08/06/2020 1 Eye OintmentCaffeine 08/06/2020 1 Citrate RESPIRATOR Y SUPPORTRespiratory Support Start Date Stop Date Dur(d) CommentNasal CPAP 08/06/2020 1 SETTINGS FOR NASA L CPAPFiO2 CPAP 0.23 6 PROCEDURESProcedures Start Date Stop Date Dur(d) Clinician CommentProcedures Delayed Cord Veewxod72/03/2020 08/06/2020 1 JOSEY DOWLING MD L Hannah INTAKE/OUTPUTRoute: NPO PLANNED INTAKEFLUID TYPE : TPNCal/oz Dex % Prot g/kg Prot g/100mL Amt mL/feed feeds/d ay mL/hr mL/kg/da 10 107.6 4.48 80 GI/NUTRITIONDiagnosis Start Date End DateNutritional Support 08/06/2020Fluids 11/2019 History 30.1 week infant initially NPO with D10W starter TPN fluids initiated at 80mL/kg/day. Initial glu cose 60. Follow up glucose 111.Plan Monitor nutritional s tatus and growth closely. Strict I/O. Daily weights. Star t D10 starter TPN 80 ml/kg/d. Monitor glucoses per hyp oglycemia protocol. NPO with plan to start trophic feeds 2 0 ml/kg/d of 20 kcal EBM/PDM@ 6 hours of life if stable an d low dose pressors. Follow lytes as clinically indicated. Chem 7, ordered in AM 08/07. PATIENT NAME: ERICA FINN GESTATIONDiagnosis Start Date En d DatePrematurity 0924-9379 gm 08/06/2020Single Li veborn - C/S 08/06/2020 hospital History 30.1 week infan t born to 23 year old . weight 1345. Maternal se rologies (drawn 08/04): HBsAg negative, HIV negative and RPR negative Rubella immune, GBS unknown. COVID nega tive.Plan Developmentally appropriate NICU care. Humidifie d incubator for thermoregulatory support, wean per protocol. Car seat challenge, CCHD screen and hearing screen prior to d/c per protocol. Hepatitis B on DOL 30 or 2kg whichever comes first. NBS #1 and #2 per protocol OT consult fo r development ECI at discharge Developmental cons ult at 36 weeks.RESPIRATORYDiagnosis Start Date End DateRe spiratory Distress 08/06/2020 Syndrome History 30.1 week i nfant, received steroids (08/04 08/05) prior to delivery. Initially placed on BCPAP support in D R with maximum FiO2 requirements at 30%. Initial CB.30/49/55/24/-2.9. Initial CXR: granular opacit ies bilaterally consistent with RDS.Plan Continue B CPAP 6+ support. Assess need for surfactant. Load with caffeine and begin daily maintenance dose. Monitor FiO2 r equirements and WOB closely. Obtain CBG/CXR on admission. Mo nitor CBG/CXR as clinically indicated.INFECTIOUS DISEA SEDiagnosis Start Date End DateInfectious Screen <=28D 08/06 History 30.1 week . ROM at delivery. Deliv jitendra for maternal indications. MOB received Ancef prior t o delivery. GBS unknown. CBC on admission. Erythromycin eye ointment administered following delivery. Initial CBC- WB C 8.1, N31.Plan Monitor for s/s of infection. Consider blood culture and antibiotics if indicated.HEMATOLOGYD iagnosis Start Date End DateAt risk for Anemia of 020 PrematurityAt risk for 08/06/2020 Hyperbilirubin emia PATIENT NAME: MARGAUX FINN [id number] History MBT O positive, BBT O positive, FABIAN neg Initial Hct 55, platelets 192. Vitamin K administered follow ing delivery.Plan Monitor for s/s of anemia/active b leeding. Follow Hct and Plt as clinically indicated. Bili daily in AM until stable. Phototherapy as indicated.NEUROLOGYDiagnosis Start Date End Date At risk for 08/06/2020 Intraventricular HemorrhageAt risk fo r White Matter 08/06/2020 Disease History 30.1 week inf ant born to 23 y/o mother, did receive steroi ds. Magnesium was administered prior to delivery. Tone/activity/reflexes appropriate for gestation al age.Plan HUS on DOL 7, or sooner if clinically indicated.PSYCHOSOCIAL INTERVENTIONDiagnosis Sta rt Date End DateParental Support 08/06/[address] Seals and TWIN Porter updated parents following stabiliza tion.Plan Keep parents updated.OPHTHALMOLOGYDiagnosis Star t Date End DateAt risk for Retinopathy 08/06/2020 of Premat urity History 30.1 week at risk of ROP. w eight 1345. On BCPAP supportPlan ROP exam per protocolHEALTH MAINTENANCEMATERNAL LABSRPR/Serology: Non-Reacti ve HIV: Negative Rubella: Immune GBS: Unknown HBsAg: Neg ative SCREENINGDate Ptljbgc2008/06/2020 Ordered IMMUNIZATIONDate Type Zoyassf0108/06/2020 Ordered Hepatitis B Parental ContactMori [phone] PATIENT NAME : MARGAUX FINN MD Glenys Hayden NNP Comment This is a critically ill patient for whom I have provided critical care services which include high complexity assessment and managemen t necessary to support vital organ system function. As this patient`s attending physician, I provided on-site coordina tion of the healthcare team inclusive of the advanced practi tioner which included patient assessment, directing the patient`s plan of care, and making decisions regarding the patient`s management on this visit`s date of service as re flected in the documentation above.Authenticated by Glenys ponce NP On 08/08/2020 06:15:40 AM Authenticated by Thee Seals MD On 09/04/2020 07:50:35 AM at 0751 at 0751 PATIENT NAME: Bozena FINN and physical scfcconoelw1403-49-57T62:11:00F.[id number] AVAvailable for patient [id number]:51:2 6 2020-08-07 [id number]:25:00 [facility] 05:25:00 [place] [facility])OB Postpart Progr NoteREPORT#:[id number] REPORT STATUS: SignedDATE:08/07/20 TIME: 524 PATIENT: MARGAUX FINN UNIT #: [id number]#: [id number] ROOM/BED: [facility]-ADOB: [birth year] AGE: 24 SEX: F A TTEND: Lilo Isabel MDADM AUTHOR: Lilo Isabel MD * ALL edits or amendments must be made on the electronic/computer document * Subjective SubjectiveAdmission EGA: Weeks: 30 Days: 1EGA at delivery (wks/days): 30 W 1DStatus/Day: PPD 1 POST 1LTCS FOR SEVERE PRE E REMOTE FROM DELIVERYPatient reports: Krista ent reports: Yes pain management effective, No nause a, No vomiting Objective Nursing Documentation ReviewN ursing Data:The data set between the solid lines has be en imported from nursing documentation. Any exceptions have been noted below under Provider comments. Feeding preferenc e: Provider comments on impor justin nursing data: [] GeneralVS:Vital Signs: Date Time Temp Pulse Res p B/P B/P Pulse O2 O2 Flow FiO2 Mean Ox Delivery Rate 12/0 4 0300 69 18 132/75 98 08/07 0150 99.4 72 20 136/84 98 / 0115 101.0 08/07 0115 60 18 136/78 93 12 0100 100. 0 12 0100 62 18 135/77 94 12/ 0045 100.0 12/ 0045 69 19 135/77 95 12/ 0030 100.0 12/ 0030 60 18 135/ 76 95 / 0015 96.0 08/07 0015 66 17 131/72 96 08/07 0000 93.0 08/07 0000 71 18 127/73 96 08/06 2345 100.0 08/06 2345 60 18 138/76 95 08/06 2330 99.0 08/06 2330 62 17 137/7 7 96 08/06 2315 97.0 08/06 2315 67 20 136/74 97 08/06 2300 96.0 08/06 2300 66 18 136/73 96 08/06 2245 98.0 08/06 2245 77 19 139/71 98 08/06 2237 98.1 81 20 130/71 98 08/063 136.0 08/06 2103 72 182/103 08/06 2041 110.0 08/06 204 1 62 166/77 08/06 2035 120.0 08/06 2035 72 174/84 08/06 202 7 122.0 08/06 2027 68 181/85 08/06 2010 120.0 08/06 2010 66 173/86 08/06 2010 98.6 18 97 08/06 1841 105.0 08/06 184 1 75 128/90 08/06 1600 103.0 08/06 1600 79 134/81 08/06 154 3 115.0 08/06 1543 70 15 161/88 08/06 1157 100.0 08/06 1157 65 18 134/77 08/06 0808 93.0 08/06 0808 98.5 83 16 127 /73 97 PATIENT WEIGHT: Weight (lb): 148Weight (oz): Clark ght (kg): 67.132 Physical ExamCardiac: normal sinus rhythm Lungs: clear to auscultationAbdomen: soft, no abnormal tendernessIncision site: well approximated edges , dry, no drainageFundus: firm, below the umbilicus, non-t enderLower extremities: Edema: 1+ pitting ResultFindings/Data:Laboratory Tests 08/06 08/06 2207 2206 Blood Gas Capillary pH (7.35 - 7.45) 7.324 L 7.2 60 L Capillary pCO2 (mmHg) 43.0 51.8 Capillary pO2 ( mmHg) 16.3 13.5 Capillary HCO3 (meq/L) 21.9 22.7 Capillary Base Excess -4.1 -4.9 Capillary O2 Sat Calc (%) 20.2 Patient On Oxygen CBLV CBLA Laboratory Tests 08/06 1125 2306 0315 1957 1957 Chemistry Sodium (135 - 145 mEq/L) 132 L Potassium (3.5 - 5.0 mEq/L) 3.8 Chloride ( 100 - 115 mEq/L) 101 Carbon Dioxide (22 - 31 mEq/L) 23 Ani on Gap (10 - 20) 5.50 L BUN (7 - 18 mg/dL) 13 Creatinine (0 .5 - 1.0 mg/dL) 0.8 0.8 Glomerular Filtr Rate (>60 ml/mi n) 89 Glucose (65 - 110 mg/dL) 77 Uric Acid (2.6 - 6.0 mg/dL) 9.0 H 7.6 H Calcium (8.4 - 10.2 mg/dL) 8.7 Magnesiu m (1.8 - 2.4 mg/dL) 5.4 *H AST (15 - 37 units/L) 16 30 A LT (12 - 78 units/L) 17 25 Laboratory Tests 08/06 08/04 1 1125 1958 1645 Hematology WBC (6.6 - 12.1 K/mm3) 13.5 H 12 .9 H 10.9 RBC (3.45 - 5.01 M/mm3) 3.02 L 4.08 3.85 Hgb (10 .7 - 13.9 g/dL) 7.9 L 10.6 L 10.2 L Hct (32.1 - 42.1 %) 25 .9 L 34.4 32.4 MCV (84.1 - 94.8 fL) 86 84 L 84 L MCH (27 - 35 pg) 26.2 L 26.0 L 26.5 L MCHC (32.2 - 34.1 gm/dL) 30 .5 L 30.8 L 31.5 L RDW (12.4 - 16.5 %) 16.2 15.4 15.7 Plt C ount (133 - 385 K/mm3) 162 204 180 MPV (9.1 - 12.7 fl) 12.5 11.8 12.3 Neut % (Auto) (56.5 - 79.4 %) 86.1 H 84.3 H 76.6 Lymph % (Auto) (14.3 - 34.3 %) 8.1 L 12.1 L 16.0 Love % (Auto) (5.1 - 10.4 %) 5.0 L 2.6 L 5.8 Eos % (Auto) (0.1 - 3 .0 %) 0.0 L 0.6 1.1 Baso % (Auto) (0.1 - 1.0 %) 0.0 L 0.1 0. 1 Neut # (Auto) (K/mm3) 11.6 10.9 8.4 Lymph # (Auto) (K/m m3) 1.1 1.6 1.7 Love # (Auto) (K/mm3) 0.7 0.3 0.6 Eos # (Aut o) (K/mm3) 0 0.08 0.12 Baso # (Auto) (K/mm3) 0.0 0.0 0.0 La boratory Tests 08/04 08/04 1645 1645 Serology Treponema pallidum Ab (NONREACTIVE) NONREACTIVE Hep Bs Antigen (NONREA CTIVE) NONREACTIVE Hepatitis C Antibody (NONREACTIVE) N ONREACTIVE Hep C Ab Signal/Cutoff (<0.80) 0.06 HIV 1 2 Anti body (NONREACTIVE) NONREACTIVE SARS-CoV-2 Ag (Rapid) (NEGATIVE) NEGATIVE Laboratory Tests 08/05 08/04 2306 1645 Urines Urine Color (YELLOW) COLE A Urine Appearance (C LEAR) CLOUDY A Urine pH (5 - 9) 5.0 Ur Specific Gravit y (1.001 - 1.035) 1.033 Urine Protein (NEG) 3+ H Urine Glu cose (UA) (NEG) NEGATIVE Urine Ketones (NEG) NEGATIVE Urin e Blood (NEG) NEG Urine Nitrite (NEG) NEG Urine Bilirubi n (NEG) NEGATIVE Urine Urobilinogen (NEG mg/dL) NEGATIVE Ur Leukocyte Esterase (NEG) TRACE H Urine RBC (NONE SEEN #/hpf) 2-5 H Urine WBC (NONE SEEN #/hpf) 5-10 H Ur Epithelial Cells (RARE - FEW #/HPF) MODERATE H U rine Bacteria (RARE - FEW /HPF) MODERATE Urine Mucus (NONE SEEN) 2+ H Ur Random Creatinine (mg/dL) 51.6 U Random Total Protein (mg/dL) 64.7 Urine Total Volume (ML) 20 00 Creatinine Clearance (70 - 120 ml/min) 88 Ur Tot al Protein 24 Hr (20 - 150 mg/24HR) 1294 *H Laboratory Test s: 08/06 08/06 08/06 2207 2206 1125 Blood Gas Capillary p H (7.35 - 7.45) 7.324 L 7.260 L Capillary pCO2 (mmHg) 43. 0 51.8 Capillary pO2 (mmHg) 16.3 13.5 Capillary HCO3 (m eq/L) 21.9 22.7 Capillary Base Excess -4.1 -4.9 Capillary O 2 Sat Calc (%) 20.2 Patient On Oxygen CBLV CBLA Chemistry U luis Acid (2.6 - 6.0 mg/dL) 9.0 H AST (15 - 37 units/L) 16 ALT (12 - 78 units/L) 17 Hematology WBC (6.6 - 12.1 K/mm3 ) 13.5 H RBC (3.45 - 5.01 M/mm3) 3.02 L Hgb (10.7 - 13.9 g/dL) 7.9 L Hct (32.1 - 42.1 %) 25.9 L MCV (84.1 - 94.8 fL) 86 MCH (27 - 35 pg) 26.2 L MCHC (32.2 - 34.1 gm/dL) 30.5 L RDW (12.4 - 16.5 %) 16.2 Plt Count (133 - 385 K/mm3) 162 MP V (9.1 - 12.7 fl) 12.5 Neut % (Auto) (56.5 - 79.4 %) 86.1 H Lymph % (Auto) (14.3 - 34.3 %) 8.1 L Love % (Auto) (5.1 - 10.4 %) 5.0 L Eos % (Auto) (0.1 - 3.0 %) 0.0 L Baso % ( Auto) (0.1 - 1.0 %) 0.0 L Neut # (Auto) (K/mm3) 11.6 Lymph # (Auto) (K/mm3) 1.1 Love # (Auto) (K/mm3) 0.7 Eos # (Au to) (K/mm3) 0 Baso # (Auto) (K/mm3) 0.0 Diagnosis, Assessme nt Plan Diagnosis, Assessment PlanAssessment: 24 Y POD1 NOW WITH SEVERE PRE E. DELIVERED FOR [place] AND WORSENIN G BPS AFTER BEING IN [place] WINDOW. ON BP PROTOCOL AND MG T ILL 11PM, 24 HRS PP. WILL NEED TO START PO MEDS TOCONTROL BPS TO KNOW WHAT SHE SHOULD BE ON FOR DC. ANEMIC ANTE WITH 7 .9 HGB. IV FE INFUSED AND GIVEN 2 U PRBS IN OR. H/H PENDING Plan discussed with: patient at 0530 RPT #:[id number] OF REPORT PRProgress [id number]:25:00F.[id number] lable for patient [id number]:30:38 2020-08-07 [id number]:21:00 [facility] 05:21:00 [place] [facility])OB Delivery NoteREPORT#:[id number] EPORT STATUS: SignedDATE:08/07/20 TIME: 520 PATIENT: MARGAUX FINN UNIT #: [id number]#: [id number] [address] [birth year] AGE: 24 SEX: F A TTEND: Lilo Isabel MDADM AUTHOR: Lilo Isabel MD * ALL edits or amendments must be made on the electronic/computer document * OB Delivery Pre-d eliveryGBS status: GBS status: unknownAdmission EGA: Weeks: 30 Days: 1EGA at delivery (wks/days): 30 W 1D Steroids Pr ior to DeliverySteroids prior to delivery: yes, deliver y 23-24 weeks Baby A InformationBaby Armand ham date: 08/06/20 Delivery time: 2201 status: live born Gender: male 1 minute: 8 5 minutes: 9 Presentation: vertexABG details Baby A Cord bloo d gases: collectedNuchal cord Baby A Nuchal cord: yes (lo ose and reduced) DeliveryCesarean section Franklyn nettie indication: SEVERE PRE E REMOTE FROM DELIVERY Pr iority: emergent Antibiotic prior to incision: 1 dose )( SCDs applied activated: Yes Uterine incision: low tra nsverse Consent: indication discussed, questions answere d, pt consent to op delivery Mother's condition: mothe r stable Infant's condition: infant to NICU Blood Loss/De tailsBlood loss at delivery: <1000 ml, 800 (2PRBC GIVEN 7.9 START)EBL at delivery (ml's): 800 at 0525 [facility] #:[id number] OF REPORT OBObstetric [id number]:21:00F.[id number] lable for patient [id number]:25:48 2020-08-06 [id number] [facility] 22:29:00 [place] [id number] PATIENT NAME: MARGAUX FINN ADMIT DATE: 08/04/20ACCOUN T NO: [id number] ROOM NO: 2214 AGE: 24 SEX: F ADMITTING PHYSICIAN: Lilo Isabel MD ATTENDING PHYSICIAN: Lilo Isabel MD OPERATIO N DATE: 08/06/2020 IDENTIFICATION: This is a 24-year-old G1, now who has: PREOPERATIVE DIAGNOSES: Severe preeclam psia, despite medications, difficult tocontrol blood p ressures and remote from delivery at 38 and 1/7th weeks'g estation. POSTOPERATIVE DIAGNOSES: Severe preeclampsia, re mote from delivery. SURGEON: Lilo Isabel MD ASSISTAN T: Aref Al-Laham, SA ANESTHESIA: Combined spinal epidura l. FLUIDS: 1000 mL of LR. ESTIMATED BLOOD LOSS: 900 mL. URI NE OUTPUT: 30 mL of concentrated, but clear urine. CONDITIO N: Stable. COMPLICATIONS: None. FINDINGS: Male in ve rtex presentation with nuchal cord x1. Weightpending neonatology with 8 and 9 Apgars and normal anatomy. Normal a natomy onthe part of mom. Delayed cord clamping was per formed. Placenta was sent topathology. PROCEDURE IN [place]: The patient was taken to the operating room. She had beengiven 2 grams of Ancef. earlier in the day and was rep eated a gram of Ancef onthe way to the operating room. T here in the operating room, she was given acombined spinal e pidural and was prepped and draped in the usual sterile [facility] ionwith placement of a Crowley catheter. Her anesthesia wa s well tested after atimeout was performed. A low trans verse incision was demarcated with a markingpen. This was then traced over with a scalpel. Using Bovie cautery, wedissected to the level of the fascia. The fasc ia was nicked in the midline andthen extended laterally with Burr scissors. The fascia was then dissected offthe r ectus muscle superiorly and inferiorly. The rectus mus bhumika was parted inthe midline. The peritoneum was tented up and entered with Metzenbaum scissors. A stretch was performed. A bladder blade was inserted and a bladder flap was PATIENT NAME: MARGAUX FINN cr eated using Metzenbaum scissors. The uterus was palpated and it wasdetermined that I could do a low transverse i ncision. A low transverse incisionwas made in the lower [place] rine segment. I entered with a hemostat. A Kerrmaneuv er was performed. The 's head was grasped and was brought throughthe incision. The nuchal cord was reduced and the body followed with fundalpressure. After 60 seco nds of delayed cord clamping where we put the baby inpl astic to contain its temperature. We then clamped the cor d after 60 seconds. The placenta was sent to pathology and the infant was handed to the awaitingneonatology attending. The placenta was then delivered manually after cord blood was collected and anthony segment was produced in orde r to get blood gases. The uterus incision wasthen reappro ximated with 2 overlapping sutures of 0 Maxon, it was he mostatic. It was replaced in the patient's abdomen. Irrig ation was performed, suctionfollowed. The rectus muscle an d peritoneum were then reapproximated with arunnin g 0 Vicryl. Lidocaine was then poured into the incision on t op of therectus muscle to help with pain relief. The f ascia was then reapproximated with2 overlapping sutures of 0 Vicryl. The subcutaneous fat was well irrigated andBovie cauterized for hemostasis. It was reapproximated with 2-0 p lars gutsuture and the skin was closed with a 3-0 Ehsan ryl in a subcuticular fashion andthen Mastisol and Steri- Strips were placed. The patient tolerated the procedurewell. Sponge, lap, and needle counts were correct x2. She was taken torecovery in stable condition. The baby was in the side room with neonatologyand looked very vigorous. D ictated By: Lilo Isabel MD WT: OP:F.SYLVESTER/ISAIAH/NTSDD: 1 10/07/2019 22:29:18DT: 08/06/2020 23:01:44Conf#: [id number]/DID #: [id number] Authenticated by Lilo Isabel MD On 0 08:25:35 PM Electronically Signed by Lilo Isabel MD o n 08/10/20 at 0441 PATIENT NAME: MARGAUX FINN [id number]:01:00F.[id number] ilable for patient [id number]:42:48 2020-08-06 [id number]:49:00 [facility] 08:49:00 [place] ([facility])OB Antepartum Prog NoteREPORT#:[id number] REPORT STATUS: SignedDATE:08/06/20 TIME: 0849 PA TIENT: MARGAUX FINN UNIT #: [id number]#: [id number] [address] [birth year] AGE: 24 SEX: F A TTEND: Lilo Isabel MDADM AUTHOR: Lilo Isabel MD * ALL edits or amendments must be made on the electronic/computer document * Subjective SubjectiveAdmission EGA: Weeks: 29 Days: 6Patien t reports: Patient reports: Yes no complaints, Yes normal f etal movement, No leaking fluid, No contractions, No headache, No blurred vision, No scotomata Objective Nursin g Documentation ReviewNursing data:The data set be tween the solid lines [facility] Any exceptions have been noted below under Provi sofia comments. ROM date: ROM ruby e: Labor onset date: Labor onset time: Provider comments on impor justin nursing data: [] VS:Vital Signs: Date Time Temp Pulse Resp B/P B/ P Pulse O2 O2 Flow FiO2 Mean Ox Delivery Rate 08/06 425 92 .0 08/065 82 19 129/71 99 08/06 0030 100.0 08/06 0030 78 19 129/83 08/06 0029 77 99 08/05 2019 97.8 76 17 11 100 08/05 1620 95.0 08/05 1620 97.8 75 16 126/75 1619 76 100 08/05 1127 97.0 08/05 1127 79 16 133/75 100 Last Documented: Result Date Time B/P Mean 92.0 08/06 0425 Pulse Ox 99 08/06 0425 B/P 129/71 08/06 0425 Pulse 82 08/06 0425 Resp 19 08/06 0425 Temp 97.8 08/05 2019 Vital S igns Date Temp Pulse Resp B/P B/P Mean Pulse Ox FiO2 08/05 -08/06 97.8 75-82 16-19 115-133/71-85 92.0-100.0 99-100 Krista ent Weight Weight (lb): 148Weight (oz): Weight (kg): 67.132 Cervical/ exam: Dilatation (cm): 0 - closed Effacement (%): 50 station: - 3 presentation: cephalicUterine activity: Monitor: toco, no org ctxnsHEENT: normocephalic w/o injuryCardiac: regular rate an d rhythm, no clinically sig murmur, no gallops, no rubsLun gs: clear to auscultation, no rales, no rhonchiNeuro: Exam : reflexes equal bilat, 2+/4+ no clonusAbdomen: gravid, sof t, no abnormal tenderness, no guardingUterus: soft, non-tenderLower extremities: Edema: trace Calf t enderness: negativeBaby A: Baby A FHR category: category 1Findings/data:Laboratory Tests 08/05 2306 0315 1957 1957 Chemistry Sodium (135 - 145 mEq/L) 132 L Potassium (3.5 - 5.0 mEq/L) 3.8 Chloride (100 - 115 mEq/L) 101 Carbon Dioxide (22 - 31 mEq/L) 23 Ani on Gap (10 - 20) 5.50 L BUN (7 - 18 mg/dL) 13 Creatinine (0 .5 - 1.0 mg/dL) 0.8 0.8 Glomerular Filtr Rate (>60 ml/min ) 89 Glucose (65 - 110 mg/dL) 77 Uric Acid (2.6 - 6.0 mg/dL) 7.6 H Calcium (8.4 - 10.2 mg/dL) 8.7 Magnesium (1.8 - 2.4 mg/dL) 5.4 *H AST (15 - 37 units/L) 30 ALT (12 - 78 units/L) 25 Laboratory Tests 08/04 1 645 Hematology WBC (6.6 - 12.1 K/mm3) 12.9 H 10.9 R BC (3.45 - 5.01 M/mm3) 4.08 3.85 Hgb (10.7 - 13.9 g/dL) 10. 6 L 10.2 L Hct (32.1 - 42.1 %) 34.4 32.4 MCV (84.1 - 94.8 f L) 84 L 84 L MCH (27 - 35 pg) 26.0 L 26.5 L MCHC (32.2 - 3 4.1 gm/dL) 30.8 L 31.5 L RDW (12.4 - 16.5 %) 15.4 15.7 Plt Count (133 - 385 K/mm3) 204 180 MPV (9.1 - 12.7 fl) 11.8 1 2.3 Neut % (Auto) (56.5 - 79.4 %) 84.3 H 76.6 Lymph % (Auto ) (14.3 - 34.3 %) 12.1 L 16.0 Love % (Auto) (5.1 - 10.4 % ) 2.6 L 5.8 Eos % (Auto) (0.1 - 3.0 %) 0.6 1.1 Baso % (Auto) (0.1 - 1.0 %) 0.1 0.1 Neut # (Auto) (K/mm3) 10.9 8.4 Lymph # (Auto) (K/mm3) 1.6 1.7 Love # (Auto) (K/mm3) 0.3 0.6 E os # (Auto) (K/mm3) 0.08 0.12 Baso # (Auto) (K/mm3) 0.0 0.0 Laboratory Tests 08/04 08/04 1645 1645 Serology Treponema pallidum Ab (NONREACTIVE) NONREACTIVE Hep Bs Antigen (NONREA CTIVE) NONREACTIVE Hepatitis C Antibody (NONREACTIVE) N ONREACTIVE Hep C Ab Signal/Cutoff (<0.80) 0.06 HIV 1 2 Anti body (NONREACTIVE) NONREACTIVE SARS-CoV-2 Ag (Rapid) (NEGATIVE) NEGATIVE Laboratory Tests 08/05 08/04 2306 1645 Urines Urine Color (YELLOW) COLE A Urine Appearance (C LEAR) CLOUDY A Urine pH (5 - 9) 5.0 Ur Specific Gravit y (1.001 - 1.035) 1.033 Urine Protein (NEG) 3+ H Urine Gluc ose (UA) (NEG) NEGATIVE Urine Ketones (NEG) NEGATIVE Uri ne Blood (NEG) NEG Urine Nitrite (NEG) NEG Urine Bilirubi n (NEG) NEGATIVE Urine Urobilinogen (NEG mg/dL) NEGATIV E Ur Leukocyte Esterase (NEG) TRACE H Urine RBC (NONE SEEN #/hpf) 2-5 H Urine WBC (NONE SEEN #/hpf) 5-10 H Ur Epithelial Cells (RARE - FEW #/HPF) MODERATE H U rine Bacteria (RARE - FEW /HPF) MODERATE Urine Mucus (NONE SEEN) 2+ H Ur Random Creatinine (mg/dL) 51.6 U R andom Total Protein (mg/dL) 64.7 Urine Total Volume (ML) 20 00 Creatinine Clearance (70 - 120 ml/min) 88 Ur Tot al Protein 24 Hr (20 - 150 mg/24HR) 1294 *H Laboratory Test s: 08/05 2306 Chemistry Creatinine (0.5 - 1.0 mg/dL) 0.8 Urines Ur Random Creatinine (mg/dL) 51.6 U Random Total Pr otein (mg/dL) 64.7 Urine Total Volume (ML) 2000 Creat inine Clearance (70 - 120 ml/min) 88 Ur Total Protein 24 Hr (20 - 150 mg/24HR) 1294 *H Laboratory Tests: 08/05 230 6 Chemistry Creatinine (0.5 - 1.0 mg/dL) 0.8 Urines Ur Rando m Creatinine (mg/dL) 51.6 U Random Total Protein ( mg/dL) 64.7 Urine Total Volume (ML) 2000 Creatinine Clearan ce (70 - 120 ml/min) 88 Ur Total Protein 24 Hr (20 - 150 mg/24HR) 1294 *H Diagnosis, Assessment Plan Diagnosis, A ssessment PlanAssessment: 24 y G1 at 30 1/7 wks with pre e clampsia. she was admitted 29w6 with bp elevation and prot einuria. given mg and bmz and on bid labetolol and nowhas normal bps. 24 hr urine with 1.2 g at admit. will repea t it for monday and will get labs every week, again today to ensure not worsening. Will deliver for worsening BPS or any evidence of HELLP per livia, latest 37wPlan discu ssed with: patient at 0855 RPT #:[id number] OF REPORT PRProgress [id number]:49:00F.[id number] lable for patient [id number]:55:22 2020-08-05 [id number]:21:00 [facility] 12:21:00 [place] ([place])OB Antepartum Prog NoteREPORT#:[id number] REPORT STATUS: SignedDATE:08/05/20 TIME: 1221 PA TIENT: MARGAUX FINN UNIT #: [id number]#: [id number] [address] [birth year] AGE: 24 SEX: F A TTEND: Lilo Isabel MDADM AUTHOR: Karl Crane III * ALL edits or amendments must be m pearl on the electronic/computer document * Subjective SubjectiveAdmission EGA: Weeks: 29 Days: 6Patien t reports: Patient reports: Yes normal movement, Yes headache, No abdominal pain, No vaginal bleeding, No leaki ng fluid, No contractions, No scotomataComments:frontal h/ a unrelieved by tylenol Objective Nursing Document ation ReviewNursing data:The data set between the donald d lines has been imported from nursing documentation. Any ex ceptions have been noted below under Provider comments. ROM date: ROM ruby e: Labor onset date: Labor onset time: Provider comments on impor justin nursing data: [] VS:Allergies Allergy Severity Reaction Updated C erika No Known Allergies 08/04/20 Vital Signs Date Time T emp Pulse Resp B/P B/P Pulse O2 O2 Flow FiO2 Mean Ox Deliv jitendra Rate 08/05 1127 97.0 08/05 1127 79 16 133/75 100 12/0 2 0811 97.7 72 18 100 08/05 0810 95.0 08/05 0810 75 132/67 1 10/06 0433 75.0 08/05 0433 81 17 107/56 99 08/05 0207 99.0 08/05 0207 85 128/84 08/05 0154 114.0 08/05 0154 94 150/10 1 08/05 0029 72 100 08/05 0028 113.0 08/05 0028 77 148/9 4 08/04 2208 93.0 08/04 2208 68 131/69 08/04 2205 67 98 08/04 2204 97.0 08/04 2204 68 129/80 08/04 2203 97.0 08/04 2203 71 131/76 08/04 2200 72 99 08/04 2158 103.0 08/04 2 158 75 142/78 08/04 2155 70 99 08/04 2153 107.0 08/04 2 153 71 135/91 08/04 2150 68 99 08/04 2147 115.0 08/04 2 147 71 143/96 08/04 2145 68 99 08/04 2142 114.0 08/04 2 142 67 141/95 08/04 2140 66 100 08/04 2128 67 100 08/04 2124 98.1 20 08/04 2124 111.0 08/04 2124 62 147/85 08/04 2123 64 100 Laboratory Tests 08/05 08/04 08/04 0315 1958 195 8 Chemistry Sodium (135 - 145 mEq/L) 132 L Potassium (3.5 - 5.0 mEq/L) 3.8 Chloride (100 - 115 mEq/L) 101 Carbon Dioxid e (22 - 31 mEq/L) 23 Anion Gap (10 - 20) 5.50 L BUN (7 - 18 mg/dL) 13 Creatinine (0.5 - 1.0 mg/dL) 0.8 Glomerular Filt r Rate (>60 ml/min) 89 Glucose (65 - 110 mg/dL) 77 Uric Aci d (2.6 - 6.0 mg/dL) 7.6 H Calcium (8.4 - 10.2 mg/dL) 8.7 Magnesium (1.8 - 2.4 mg/dL) 5.4 *H AST (15 - 37 units/L) 3 0 ALT (12 - 78 units/L) 25 Laboratory Tests 08/048 1645 Hematology WBC (6.6 - 12.1 K/mm3) 12.9 H 10.9 RB C (3.45 - 5.01 M/mm3) 4.08 3.85 Hgb (10.7 - 13.9 g/dL) 10. 6 L 10.2 L Hct (32.1 - 42.1 %) 34.4 32.4 MCV (84.1 - 94.8 f L) 84 L 84 L MCH (27 - 35 pg) 26.0 L 26.5 L MCHC (32.2 - 34 .1 gm/dL) 30.8 L 31.5 L RDW (12.4 - 16.5 %) 15.4 15.7 Plt Count (133 - 385 K/mm3) 204 180 MPV (9.1 - 12.7 fl) 11.8 1 2.3 Neut % (Auto) (56.5 - 79.4 %) 84.3 H 76.6 Lymph % (Auto ) (14.3 - 34.3 %) 12.1 L 16.0 Love % (Auto) (5.1 - 10.4 %) 2.6 L 5.8 Eos % (Auto) (0.1 - 3.0 %) 0.6 1.1 Baso % (Auto) (0.1 - 1.0 %) 0.1 0.1 Neut # (Auto) (K/mm3) 10.9 8.4 Lymph # (Auto) (K/mm3) 1.6 1.7 Love # (Auto) (K/mm3) 0.3 0.6 Eo s # (Auto) (K/mm3) 0.08 0.12 Baso # (Auto) (K/mm3) 0.0 0.0 Laboratory Tests 08/045 1645 Serology Treponema pallidum Ab (NONREACTIVE) NONREACTIVE Hep Bs Antigen (NONREA CTIVE) NONREACTIVE Hepatitis C Antibody (NONREACTIVE) N ONREACTIVE Hep C Ab Signal/Cutoff (<0.80) 0.06 HIV 1 2 Anti body (NONREACTIVE) NONREACTIVE SARS-CoV-2 Ag (Rapid) (NEGATIVE) NEGATIVE Laboratory Tests 08/04 164 Urines Uri ne Color (YELLOW) COLE A Urine Appearance (CLEAR) CLOUDY A Urine pH (5 - 9) 5.0 Ur Specific [place] (1.001 - 1.035) 1.033 Urine Protein (NEG) 3+ H Urine Glucose (UA) (NEG) NEG ATIVE Urine Ketones (NEG) NEGATIVE Urine Blood (NEG) NEG Uri ne Nitrite (NEG) NEG Urine Bilirubin (NEG) NEGATIVE Urine U robilinogen (NEG mg/dL) NEGATIVE Ur Leukocyte Esterase (NEG) TRACE H Urine RBC (NONE SEEN #/hpf) 2-5 H Urine WBC (NON E SEEN #/hpf) 5-10 H Ur Epithelial Cells (RARE - FEW #/ HPF) MODERATE H Urine Bacteria (RARE - FEW /HPF) MODE RATE Urine Mucus (NONE SEEN) 2+ H Laboratory Tests: 08/05 164 Chemistry Sodium (135 - 145 mEq/L) 132 L Potassium (3.5 - 5.0 mEq/L) 3.8 Chl oride (100 - 115 mEq/L) 101 Carbon Dioxide (22 - 31 mEq/L) 23 Anion Gap (10 - 20) 5.50 L BUN (7 - 18 mg/dL) 13 Creat inine (0.5 - 1.0 mg/dL) 0.8 Glomerular Filtr Rate (>60 m l/min) 89 Glucose (65 - 110 mg/dL) 77 Uric Acid (2.6 - 6.0 mg/dL) 7.6 H Calcium (8.4 - 10.2 mg/dL) 8.7 Magnesium (1.8 - 2.4 mg/dL) 5.4 *H AST (15 - 37 units/L) 30 ALT (12 - 78 units/L) 25 Hematology WBC (6.6 - 12.1 K/mm3) 12 .9 H RBC (3.45 - 5.01 M/mm3) 4.08 Hgb (10.7 - 13.9 g/dL) 10.6 L Hct (32.1 - 42.1 %) 34.4 MCV (84.1 - 94.8 fL) 84 L M CH (27 - 35 pg) 26.0 L MCHC (32.2 - 34.1 gm/dL) 30.8 L RDW ( 12.4 - 16.5 %) 15.4 Plt Count (133 - 385 K/mm3) 204 MPV (9. 1 - 12.7 fl) 11.8 Neut % (Auto) (56.5 - 79.4 %) 84.3 H Ly mph % (Auto) (14.3 - 34.3 %) 12.1 L Love % (Auto) (5. 1 - 10.4 %) 2.6 L Eos % (Auto) (0.1 - 3.0 %) 0.6 Baso % (Aut o) (0.1 - 1.0 %) 0.1 Neut # (Auto) (K/mm3) 10.9 Lymph # ( Auto) (K/mm3) 1.6 Love # (Auto) (K/mm3) 0.3 Eos # (Au to) (K/mm3) 0.08 Baso # (Auto) (K/mm3) 0.0 Serology SARS-CoV -2 Ag (Rapid) (NEGATIVE) NEGATIVE 08/04 1645 Hematolo gy WBC (6.6 - 12.1 K/mm3) 10.9 RBC (3.45 - 5.01 M/mm3) 3.85 Hgb (10.7 - 13.9 g/dL) 10.2 L Hct (32.1 - 42.1 %) 32.4 MCV ( 84.1 - 94.8 fL) 84 L MCH (27 - 35 pg) 26.5 L MCHC (32.2 - 34 .1 gm/dL) 31.5 L RDW (12.4 - 16.5 %) 15.7 Plt Count (133 - 385 K/mm3) 180 MPV (9.1 - 12.7 fl) 12.3 Neut % (Auto) (56.5 - 79.4 %) 76.6 Lymph % (Auto) (14.3 - 34.3 %) 16.0 Love % (Auto) (5.1 - 10.4 %) 5.8 Eos % (Auto) (0.1 - 3.0 %) 1. 1 Baso % (Auto) (0.1 - 1.0 %) 0.1 Neut # (Auto) (K/mm3) 8.4 Lymph # (Auto) (K/mm3) 1.7 Love # (Auto) (K/mm3) 0.6 Eo s # (Auto) (K/mm3) 0.12 Baso # (Auto) (K/mm3) 0.0 Serology Treponema pallidum Ab (NONREACTIVE) NONREACTIVE Hep Bs Ant igen (NONREACTIVE) NONREACTIVE Hepatitis C Antibody (NONREACTIVE) NONREACTIVE Hep C Ab Signal/Cutoff (<0.80) 0.06 HIV 1 2 Antibody (NONREACTIVE) NONREACTIVE Urines Urine Color (YELLOW) COLE A Urine Appearance (C LEAR) CLOUDY A Urine pH (5 - 9) 5.0 Ur Specific Gravit y (1.001 - 1.035) 1.033 Urine Protein (NEG) 3+ H Urine Glu cose (UA) (NEG) NEGATIVE Urine Ketones (NEG) NEGATIVE Urin e Blood (NEG) NEG Urine Nitrite (NEG) NEG Urine Bilirub in (NEG) NEGATIVE Urine Urobilinogen (NEG mg/dL) NEGATIVE Ur Leukocyte Esterase (NEG) TRACE H Urine RBC (NONE SEEN #/hpf) 2-5 H Urine WBC (NONE SEEN #/hpf) 5-10 H Ur Epithelial Cells (RARE - FEW #/HPF) MODERATE H U rine Bacteria (RARE - FEW /HPF) MODERATE Urine Mucus (NONE SEEN) 2+ H Current Medications Sig/Jonah Start time Last Medication Dose Route Stop Time Status Admin Multivi/Iron C arb/Fe 1 EA DAILY 08/05 0900 AC 08/05 Sulf/FA/Prenat PO 09/06 1 0859 0819 Acetaminophen 650 MG Q6H PRN PRN 08/05 0845 AC 1 10/06 PO 10/04 0844 0854 Labetalol HCl 200 MG Q12HR 08/05 0000 AC 08/05 PO 10/04 0000 1129 Acetaminophen/ 1 EACH ONCE 08/04 2330 CKD 08/05 Butalbital/Caffeine PO 08/05 2359 0031 Calcium Gluconate 1,000 MG BOLUS ASDIR PRN 08/04 2030 AC IV 10/03 2028 Undefined Medication 100 ML ASDIR 2029 CKD 08/04 IV 08/18 Undefined Medication 50 0 ML ASDIR 08/04 2030 CKD 08/05 IV 08/1815 Docusat e Sodium 100 MG BID 08/04 2000 AC 08/05 PO 10/03 1959 081 9 Betamethasone Acet/ 12 MG Q24H 08/04 173 AC Betameth SodPhos IM 08/05 173 1804 Calcium Gluconate 1,0 00 MG BOLUS ASDIR PRN 08/04 173 AC IV 10/03 1729 Dextrose/L actated 1,000 ML ASDIR 08/04 173 AC 08/04 Ringer's IV 0 10/03 1729 2118 Labetalol HCl 20 MG ASDIR PRN 08/04 1630 AC IV Nifedipine 10 MG ONCE ONE 08/04 163 DC 08/04 PO 08/04 1631 1644 Nifedipine 20 MG ASDIR PRN 08/04 1630 AC P O Nifedipine 20 MG ASDIR PRN 08/04 1630 AC PO Last Documented: Result Date Time B/P Mean 97.0 12/ 2 1127 Pulse Ox 100 08/05 1127 B/P 133/75 08/05 1127 Pu lse 79 08/05 1127 Resp 16 08/05 1127 Temp 97.7 08/05 08 11 Vital SignsDate Temp Pulse Resp B/P B/P Mean Pulse Ox QvO428/-08/05 97.7-98.1 62-94 16-20 107-150/56 -101 75.0-115.0 98-100 Patient Weight Weight (lb): 14 8Weight (oz): Weight (kg): 67.132 Cervical/ exam: D ilatation (cm): deferredUterine activity: Monitor: toco, n o org ctxnsHEENT: normocephalic w/o injuryCardiac: reg ular rate and rhythm, no clinically sig murmur, no gallops , no rubsLungs: clear to auscultation, no rales, no rhonchiNeuro: Exam: reflexes equal bilat, 2+/4+ no clonusAbdomen: gravid, soft, no abnormal tendern ess, no guardingUterus: soft, non-tenderLower extremitie s: Edema: trace Calf tenderness: negativeBaby A: Baby A F HR category: category 1 Diagnosis, Assessment Plan Diagnosis, Assessment PlanFree Text A P:1. 24 y/o @ 30 0/7 weeksr/o PIH.no evidence of severe features nowh /a exam and BP not suspicious for severe features. I rec fio ricet now. 24 hr urine pending.receiving steroids and mag S O4 prophylaxis Breech presentation. for C/S if need s to be delivered and baby still non cephalic. Tiffanie melo Signed by Karl Rogers III on 0 at 1239 RPT #:[id number] OF REPORT PRProgress [id number]:00F.[id number] lable for patient [id number]:39:25 2020-08-04 [id number]:51:00 [facility] 22:51:00 [facility] Consultation NoteREPORT#:[id number] REPORT STATUS: SignedDATE:08/04/20 TIME: 2250 PATIENT: MARGAUX FINN UNIT #: [id number]#: [id number] [address] AGE: 24 SEX: F A TTEND: Lilo Isabel [facility] AUTHOR: Lesly Mittal MD * ALL edits or amendments must be made on the electronic/computer document * History of Presen t Illness HPIReason for consult:ELEVATED bp IN THE OFFICE, ULTRASOUND ANCONSULTHPI:24 year old G1 at 29 6/7 weeks [place], presented to with elevated BP and ;headache. Works in [employer], has had elevated labile BP on/off and swelling for 2 wee ks. 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 Today BP was 160 /104 on presen tation. Patient has had headaches with elevated BP Patie nt with mild mild headache, has not received analgesia y et History Past HistoryPast medical history: migrainesPast surgical history: tonsillectomy, wisdom teethPast social history: , no alcohol use, no drug abuse, no tobac co usePast family history:Relation not specified for: Famil y History: Heart disease Medications:Current Hospital Medications:Cardiovascular Drugs Sig/Jonah Start t cecy Last Medication Dose Route Stop Time Status Admin Lab etalol HCl 20 MG ASDIR PRN 08/04 1630 AC (NORMODYNE 100 MG/ 20 IV ML VIAL) Nifedipine 10 MG ONCE ONE 08/04 1630 DC (ADALAT 10 MG CAP) PO 08/04 1631 1644 Nifedipine 20 MG ASDIR PRN 08/04 1630 AC (ADALAT 10 MG CAP) PO Ni fedipine 20 MG ASDIR PRN 08/04 1630 AC (ADALAT 10 MG CAP) PO Central Nervous System Agents Sig/Jonah Start time Last Me dication Dose Route Stop Time Status Admin Undefined Medi cation 100 ML ASDIR 08/04 2030 CKD 08/04 (MAGNESIUM SULFATE IV 08/18 2029 2126 4GM/SWFI 100ML) Undefined Medication 5 00 ML ASDIR 08/04 2030 CKD 08/04 (MAGNESIUM SULFATE IV 08/18 2029 2207 20GM/SWFI 500ML) Electrolytic, Caloric, And Lasha Sig/Jonah Start time Last Medication Dose Route Stop Time Status Admin Calcium Gluconate 1,000 MG BOLUS ASDIR PRN 08/04 2030 AC (CA GLUCONATE 1 GM/ IV 10/03 2028 10 ML VIAL) Calcium Gluconate 1,000 MG BOLUS ASDIR PRN 08/04 173 AC (CA GLUCONATE 1 GM/ IV 10/03 172 10 ML VIAL) Dextro se/Lactated 1,000 ML ASDIR 08/04 1730 AC 08/04 Ringer's IV 10/03 1729 2118 (DEXTROSE 5% IN LACTATED RINGERS 1000 ML) Gastrointestinal Drugs Sig/Jonah Start time Last Medication Dose Route Stop Time Status Admin Docusate Sodiu m 100 MG BID 08/04 2000 AC (DOCUSATE SODIUM 100 PO 10/03 1959 MG CAP) Hormones And Synthetic Substit Sig/Jonah Star t time Last Medication Dose Route Stop Time Status Admin Be tamethasone Acet/ 12 MG Q24H 08/04 173 AC 08/04 Betameth So dPhos IM 08/05 173 1804 (CELESTONE SOLUSPAN 12MG/2 ML SY R) Vitamins Sig/Jonah Start time Last Medication Dose Route St op Time Status Admin Multivi/Iron Carb/Fe 1 EA DAILY 09 AC Sulf/FA/Prenat PO 10/04 0859 ( VITAMINS) Allergies:Coded Allergies:No Known Allergies () Review of SystemsConstitutional:Denies: chills, fatigue. Skin:Denies: abrasion, bruising. Eyes:Denies: ph otophobia, swelling. ENT:Denies: ear ringing. Respiratory:D enies: SOB, wheezing. Cardiovascular:Denies: chest pain, pal pitations. GI:Denies: nausea. :Denies: dysuria. Psych:Den ies: agitation, anxiety. Objective Physical ExamVS/I O:Vital Signs: Date Time Temp Pulse Resp B/P B/P Pulse O 2 O2 Flow FiO2 Mean Ox Delivery Rate 08/04 2158 103.0 2157 75 142/78 08/04 2155 70 99 08/04 2153 107.0 08/04 2153 71 135/91 08/04 2150 68 99 08/04 2147 115.0 08/04 2147 71 143/96 08/04 2145 68 99 08/04 2142 114.0 08/04 2 142 67 141/95 08/04 2140 66 100 08/04 2128 67 100 08/04 2124 111.0 08/04 2124 62 147/85 08/04 2123 64 100 Last Docu mented: Result Date Time B/P Mean 103.0 08/04 2158 B/P 1 42/78 08/04 2158 Pulse 75 08/04 2158 Pulse Ox 99 08/04 2155 Patient Weight Weight (lb): 148Weight (oz): Weight (kg): 67.132 General appearance: alert, awakeHEENT: normoceph alicBreast: no tendernessCardiovascular: regular rate and rhythmRespiratory: clear to auscultationAbdomen: non-tender, softExtremities: edema ( !+), no delores f tnedernessNeuro/PROFILE SHAPER OPERATOR: alert, oriented x 3, normal gaitSkin: dry, intact, normal color, normal temperature, n ormal turgor, no rashFetal heart rate pattern: categor y I ResultsFindings/Data:Laboratory Tests 08/04 1958 Chemistry Uric Acid (2.6 - 6.0 mg/dL) 7.6 H AST (15 - 37 u nits/L) 30 ALT (12 - 78 units/L) 25 Laboratory Tests 08/04 1645 Hematology WBC (6.6 - 12.1 K/mm3) 12.9 H 10 .9 RBC (3.45 - 5.01 M/mm3) 4.08 3.85 Hgb (10.7 - 13.9 g /dL) 10.6 L 10.2 L Hct (32.1 - 42.1 %) 34.4 32.4 MCV (84.1 - 94.8 fL) 84 L 84 L MCH (27 - 35 pg) 26.0 L 26.5 L MCHC (3 2.2 - 34.1 gm/dL) 30.8 L 31.5 L RDW (12.4 - 16.5 %) 15.4 1 5.7 Plt Count (133 - 385 K/mm3) 204 180 MPV (9.1 - 12.7 fl) 11.8 12.3 Neut % (Auto) (56.5 - 79.4 %) 84.3 H 76.6 Lymph % (Auto) (14.3 - 34.3 %) 12.1 L 16.0 Love % (Auto) (5.1 - 10.4 %) 2.6 L 5.8 Eos % (Auto) (0.1 - 3.0 %) 0. 6 1.1 Baso % (Auto) (0.1 - 1.0 %) 0.1 0.1 Neut # (Auto) (K/ mm3) 10.9 8.4 Lymph # (Auto) (K/mm3) 1.6 1.7 Love # (Auto) (K/mm3) 0.3 0.6 Eos # (Auto) (K/mm3) 0.08 0.12 Baso # (A uto) (K/mm3) 0.0 0.0 Laboratory Tests 08/04 08/04 164 5 1645 Serology Treponema pallidum Ab (NONREACTIVE) NON REACTIVE Hep Bs Antigen (NONREACTIVE) NONREACTIVE Hepatit is C Antibody (NONREACTIVE) NONREACTIVE Hep C Ab Sign al/Cutoff (<0.80) 0.06 HIV 1 2 Antibody (NONREACTIVE) NONR EACTIVE SARS-CoV-2 Ag (Rapid) (NEGATIVE) NEGATIVE Labora tory Tests 08/04 1645 Urines Urine Color (YELLOW) COLE Ur ine Appearance (CLEAR) CLOUDY Urine pH (5 - 9) 5.0 U r Specific [place] (1.001 - 1.035) 1.033 Urine Protein (NEG ) 3+ H Urine Glucose (UA) (NEG) NEGATIVE Urine Ketones (NEG) NEGATIVE Urine Blood (NEG) NEG Urine Nitrite (NE G) NEG Urine Bilirubin (NEG) NEGATIVE Urine Urobilinoge n (NEG mg/dL) NEGATIVE Ur Leukocyte Esterase (NEG) TRAC E H Urine RBC (NONE SEEN #/hpf) 2-5 H Urine WBC (NONE SEEN #/hpf) 5-10 H Ur Epithelial Cells (RARE - FEW #/HPF) MO DERATE H Urine Bacteria (RARE - FEW /HPF) MODERATE Urine Mucus (NONE SEEN) 2+ H Radiology data:ULtrasound zamora breechposterior corpus placentano gross anomalie s, male fetus ANGELLA low normal 11 S/D 4.0BPp 8/8EFW 1813 g ms, 54 %assymtercalgroth, AC 20 %,HC 68 % cervix long a nd closed Diagnosis, Assessment Plan Diagnosis, Assessment PlanFree Text A P:24 year old G1 at 29 6/7 weeks GA 1. AG A fetus, category 1 tracing, at risk for delivery : celestone, magnesium sulfate2. preeclampsia labi le BPs of severe range, headache, elevated uric acid. Recc omend monitoring closely, given headache, labetalol 20 0 mg bid advised, evaluate severity of remnal dysfunction ( BUN, creat , urine protein pending.) suspect patient will require hospital managment till delivery: monito ring for severity of disease and delivery if not stabiliz ed with initial therapy, or if worsens as cont inues. Goal is to reach each additional week for matur ity, no later then 37 weeks GA delivery. repeat ultrasou nd in 2 weeks to asess growth is advised. 3. suspe cting renal dysfunction, have ordered magnesium level at 6 h rs after loading dose, may need to dicrease rate of admin istration. Fiorcett for headacheprescribed. Thank you Elect ronically Signed by Keila Mittal MD on 08/04/20 at 2319 R PT #:[id number] OF REPORT [id number]:51:00F.[id number] able for patient [id number] :19:51 2020-08-04 [id number] [facility] 22:33:00 [place] [id number] PATIENT NAME: MARGAUX FINN ADMIT DATE: 08/04/20ACCOUN T NO: [id number] ROOM NO: [facility] AGE: 24 SEX: F ADMITTING PHYSICIAN: Lilo Isabel MD ATTENDING PHYSICIAN: Lilo Isabel MD ADMISSIO N DATE: 08/04/2020 CHIEF COMPLAINT: Elevated blood press ures. HISTORY OF PRESENT ILLNESS: The patient is a 24- year-old G1, at 29-6/7th weeks,who presented [facility] for [facility] obstetric visit today and was noted toha ve elevated blood pressures of 150s/90s. She denied any head aches. Noscotomatas. No nausea or vomiting. No right up per quadrant pain. Herpregnancy has been followed by Dr. Isabel since first trimester. 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 She denies any contractions, no vaginal bleeding, no loss of fluid, good fetalmovement. No other concerns pre sent. She has had some mild edema that has notbeen concern ing. PAST MEDICAL HISTORY: Significant for migraine headac hes. PAST SURGICAL HISTORY: Includes a tonsillectomy and w isdom teeth extraction. FAMILY HISTORY: Significant for [facility] with high cholesterol, hypertension. Father with high cholesterol. Maternal grandmother with diabetes and high bloodpressure as does her maternal grandfather. SOCIAL HISTORY: Negative for tobacco, alcohol, or drug abuse. She is sexuallyactive with no known STDs. This is he r first . ALLERGIES: NONE. MEDICATIONS: Include s;1. vitamins.2. Flonase.3. Maxalt when not .4. Zyrtec.5. Albuterol p.r.n. PHYSICAL EXAMINATION: VITAL SIGNS: Show that she is afebrile. Pulse was in t he 60s to 70s. Initialblood pressure upon presentation was 160s over 107 and current blood pressure [id number] over 70s a nd 80s. Her pulse oximeter is 99% to 100% on room air.GENERA L: She is afebrile.HEENT: Shows normocephalic, atraumatic. No lymphadenopathy. No thyromegaly.LUNGS: Clear to auscultation bilaterally.CARDIOVASCULAR: Shows r egular rate and rhythm. S1 and S2 that is audible.ABDOMEN: S oft, nontender with size equal to dates. PATIENT NAME : MARGAUX FINN EXTREMIT IES: With 1 plus lower extremity edema. No calf tenderness.P MAXWELL: Was not done. LABORATORY DATA: Shows white blood kristina l count of 12.9, hemoglobin andhematocrit of 10.6 and 34.4, platelets of 204,000, a little bit of white shiftof neutro phils of 84.3%, lymphocytes of 12.1%, monocytes of 2.6, u luis acid is at7.6, AST of 30, and ALT of 25. WBC is 10.9 wit h an hemoglobin and hematocrit of10.2 and 32.4, and p latelets of 180. Hepatitis B surface antigen is negative. RP R nonreactive. Hepatitis B surface body is negativ e. HIV is negative. COVIDtesting is negative. ASSESSMENT: Intrauterine at 29-6/7th weeks, being admitted to ruleout severe preeclampsia. PLAN: Given her ini tial blood pressures of 160s over 100s , the patient is vania ng admitted for serial BP readings. She was initially given a dose of p.o. Procardia, which brought her blood pressure s in the 140s to 150s over 80s to 90srange. She is being started on magnesium neuro prophylaxis for 24 hours. Shehas been given 2 doses of Celestone 24 hours apart and will be meeting with aneonatologist for a keya consult. Dr. Lizama has also been consulted and willmeet with the patient in the morning for a HPA consult. A 24-hour urine hasbeen begun . Depending on all of the data collected, the patient couldp otentially go home on bed rest and p.o. blood pressure medi cations. This willbe determined once all of the informati on has been collected. All of this hasbeen discussed with th e patient and the full plan of care as well, all questions have been answered to her full satisfaction. Dictated By: Luz Maria Fernandez MD WT: HP:F.SYLVESTER/DEMARU/NTSDD: 0 22:33:08DT: 08/05/2020 00:50:18Conf#: [id number]/DID #: [id number] by Luz Maria Fernandez MD On 07/2020 08:09:20 PM at 2008 PATIENT NAME: MARGAUX FINN CCOUNT #: [id number] and physical [id number]:00F.[id number] AVAvailable for patient [id number]:09:5 6
--- NOTE | 2023-07-26 23:50 | ER ---
Nurse's Notes [facility] Name: Margaux Clifford Age: 27 yrs Sex: Female : 1995 Arrival Date: 07/26/2023 Time: 23:41 Bed Waiting Private MD: Diagnosis: Bacterial meningitis exposure Presentation: 07/26 23:47 Chief complaint: Patient states: Exposed to a patient that has bacterial meningitis. cm10 here for prophylaxis. Coronavirus screen: Vaccine status: Patient reports being unvaccinated. Ebola Screen: Patient denies travel to an Ebola-affected area in the 21 days before illness onset. No symptoms or risks identified at this time. Initial Sepsis Screen: Does the patient meet any 2 criteria? No. Patient's initial sepsis screen is negative. Does the patient have a suspected source of infection? No. Patient's initial sepsis screen is negative. Risk Assessment: Do you want to hurt yourself or someone else? Patient reports no desire to harm self or others. Onset of symptoms was July 26, 2023. 23:47 Method Of Arrival: Ambulatory cm10 23:47 Acuity: DELORES 4 cm10 Triage Assessment: 23:49 General: Appears in no apparent distress. comfortable, Behavior is calm, cooperative. cm10 Pain: Denies pain. Neuro: No deficits noted. Level of Consciousness is awake, alert, obeys commands, Oriented to person, place, time, situation. Historical: - Allergies: 23:48 No Known Allergies; cm10 - Home Meds: 23:48 None [Active]; cm10 - PMHx: 23:48 None; cm10 - Immunization history:: Adult Immunizations up to date. - Social history:: Smoking status: Patient denies any tobacco usage or history of. Screenin:[address] [facility] ED Fall Risk Assessment (Adult) History of falling in the last 3 months, cm10 including since admission No falls in past 3 months (0 pts) Confusion or Disorientation No (0 pts) Intoxicated or Sedated No (0 pts) Impaired Gait No (0 pts) Mobility Assist Device Used No (0 pt) Altered Elimination No (0 pt) Score/Fall Risk Level 0 - 2 = Low Risk Oriented to surroundings, Maintained a safe environment, Hourly rounding (assess needs \T\ fall precautionary measures) done. Abuse screen: Denies threats or abuse. Denies injuries from another. Nutritional screening: No deficits noted. Tuberculosis screening: No symptoms or risk factors identified. Vital Signs: 23:47 BP 133 / 89; Pulse 87; Resp 18; Temp 98.9; Pulse Ox 99% on R/A; cm10 ED Course: 23:42 Patient arrived in ED. jj6 23:43 Gabbie Joseph FNP-C is [facility]. kb 23:43 Refugio Wang MD is Attending Physician. kb 23:48 Triage completed. cm10 23:49 Arm band placed on Patient placed in waiting room. cm10 23:49 Patient has correct armband on for positive identification. Provided Education on: ER cm10 process and procedures. . 23:49 No provider procedures requiring assistance completed. Patient did not have IV access cm10 during this emergency room visit. Administered Medications: 23:47 Drug: Ciprofloxacin PO 1 grams PO once Route: PO; cm10 23:50 Follow up: Response: No adverse reaction cm10 Medication: 23:49 VIS not applicable for this client. cm10 Outcome: 23:44 Discharge ordered by . kb 23:50 Discharged to home ambulatory, cm10 23:50 Condition: good 23:50 Discharge instructions given to patient, Instructed on discharge instructions, follow up and referral plans. Demonstrated understanding of instructions, follow-up care, 23:50 Patient left the ED. cm10 Signatures: Gabbie Joseph FNP-C FNP-Ckb Jeffries, Jennifer jj6 Laine Fabian, RN RN cm10
[2023-07-27] MEDS ORDERED: CIPROFLOXACIN HCL 500 MG TAB ONE (00:01)
[2023-07-27 00:14] VITALS: BP 133/89; TEMP 98.9; O2SAT 99
== END 2023-07-26 23:50 | disposition home or self-care (01) ==
LOC: ER 23:41
DX: Z20.811 Contact with and (suspected) exposure to meningococcus (principal)
CPT/HCPCS: 99283